=== PATIENT | male | born 1950 ===

== ENCOUNTER 2021-10-19 17:00 | Emergency (ER) | payer OTHER ==
[~2021-10-19] VITALS: Ht 177.8 cm; Wt 104.3 kg
[2021-10-19] MEDS ORDERED: FAMOTIDINE (10MG/ML) 2ML VL IV ONE (19:15)
[2021-10-19] MEDS ORDERED: SODIUM CHLORIDE 0.9% 1,000 ML IVB ONE (19:15)
[2021-10-19] MEDS ORDERED: IOHEXOL 350 MG/ML 100ML IJ ONE (20:46)
[2021-10-19 22:43] LABS: Basophils # (auto) 0 10 ^3/uL (0-0.2); Basophils % (auto) 0.3 % (0.0-2.0); Eosinophils # (auto) 0.2 10 ^3/uL (0-0.8); Eosinophils % (auto) 1.5 % (0.0-7.0); Hematocrit 36.9 % (41.0-53.0); Hemoglobin 12.4 g/dL (13.5-17.5); Lymphocytes # (auto) 3.2 10 ^3/uL (0.4-5.4); Lymphocytes % (auto) 22.6 % (10.0-50.0); Mean Corpuscular Hemoglobin 31.9 pg (28.0-32.0); Mean Corpuscular Hgb Conc. 33.7 g/dL (32.0-36.0); Mean Corpuscular Volume 94.5 fL (80.0-100.0); Monocytes # (auto) 1.3 10 ^3/uL (0-1.3); Monocytes % (auto) 9.7 % (0.0-12.0); Neutrophils # (auto) 9.2 10 ^3/uL (1.6-8.6); Neutrophils % (auto) 65.9 % (37.0-80.0); Red Cell Distribution Width 14.1 % (11.8-14.3); White Blood Cell 13.9 10^3/uL (4.4-10.8)
[2021-10-19 23:04] LABS: Albumin 3.7 g/dL (3.4-5.0); Magnesium 3.2 mg/dL (1.6-2.6); Potassium 4.1 mmol/L (3.5-5.1)
[2021-10-19 23:10] LABS: BUN/Creatinine Ratio 19.4; Bilirubin, Total 0.6 mg/dL (0.2-1.0); Total Protein 7.8 g/dL (6.4-8.2)
[2021-10-20] MEDS ORDERED: HYDROcodone-ACET 7.5/325MG TAB PO ONE (03:30)
[2021-10-20 09:30] VITALS: BP 122/78
== END 2021-10-20 13:41 | disposition home or self-care (01) ==
LOC: ER 17:00
DX: K57.30 Diverticulosis of large intestine without perforation or abscess without bleeding (principal); K82.8 Other specified diseases of gallbladder; N40.0 Benign prostatic hyperplasia without lower urinary tract symptoms; K59.00 Constipation, unspecified; J45.909 Unspecified asthma, uncomplicated; K21.9 Gastro-esophageal reflux disease without esophagitis; E78.5 Hyperlipidemia, unspecified; Z88.6 Allergy status to analgesic agent
CPT/HCPCS: 36415; 74177; 80053; 83605; 83690; 83735; 84484; 85025; 93005; 96361; 96374; 99285; J3490; J7030; Q9967

== ENCOUNTER 2023-07-19 09:47 | Inpatient (IN) | payer OTHER ==
[~2023-07-19] VITALS: Ht 177.8 cm; Wt 106.1 kg
[2023-07-19 10:30] LABS: Basophils # (auto) 0 10 ^3/uL (0-0.2); Basophils % (auto) 0.2 % (0.0-2.0); Eosinophils # (auto) 0.3 10 ^3/uL (0-0.8); Eosinophils % (auto) 3.3 % (0.0-7.0); Hematocrit 35.9 % (41.0-53.0); Hemoglobin 12.4 g/dL (13.5-17.5); Lymphocytes # (auto) 2.5 10 ^3/uL (0.4-5.4); Mean Corpuscular Hemoglobin 32.7 pg (28.0-32.0); Mean Corpuscular Hgb Conc. 34.5 g/dL (32.0-36.0); Mean Corpuscular Volume 94.6 fL (80.0-100.0); Monocytes # (auto) 0.8 10 ^3/uL (0-1.3); Monocytes % (auto) 7.4 % (0.0-12.0); Neutrophils # (auto) 6.8 10 ^3/uL (1.6-8.6); Neutrophils % (auto) 65.1 % (37.0-80.0); Red Blood Cells 3.79 10^6/uL (4.5-5.90); Red Cell Distribution Width 14.4 % (11.8-14.3); White Blood Cell 10.5 10^3/uL (4.4-10.8)
[2023-07-19 11:05] LABS: Alanine Aminotransferase 30 U/L (7-40); Albumin 4.3 g/dL (3.2-4.8); Alkaline Phosphatase 100 U/L (46-116); Anion Gap 7.5 (5-15); Aspartate Aminotransferase 19 U/L (13-40); BUN/Creatinine Ratio 17.2 (10.0-20.0); Bilirubin, Total 0.4 mg/dL (0.2-1.0); Blood Urea Nitrogen 17 mg/dL (9-23); Calcium 9.7 mg/dL (8.5-10.1); Carbon Dioxide 23.5 mmol/L (20-30); Chloride 109 mmol/L (98-107); Glucose 105 mg/dL (74-106); Potassium 4.5 mmol/L (3.5-5.1); Sodium 140 mmol/L (136-145); Total Protein 7.1 g/dL (5.7-8.2)
[2023-07-19 11:32] LABS: Urine WBC None Seen /hpf (0 - 3)
[2023-07-19 12:04] LABS: Urine Bacteria NONE SEEN /hpf (None Seen); Urine Blood Negative /uL (Negative); Urine Clarity Clear (Clear); Urine Color Yellow (Yellow); Urine Mucus FEW (None Seen); Urine Protein, UAD Negative (Negative); Urine Specific Gravity 1.015 (1.001-1.035); Urine Urobilinogen Normal (Negative); Urine pH 5.5 (5.0-8.0)
[2023-07-19] MEDS ORDERED: ENOXAPARIN SOD 120 MG/0.8 ML SYRINGE SC ONE (12:30)
[2023-07-19 14:02] VITALS: RESP 20; O2SAT 98
[2023-07-19] MEDS ORDERED: TAMS0.4C36 PO (14:05)
[2023-07-19] MEDS ORDERED: BENZ100C97 PO (14:05)
[2023-07-19] MEDS ORDERED: BUPR200T49 PO (14:05)
[2023-07-19] MEDS ORDERED: AMLO1TAB22 PO (14:05)
[2023-07-19] MEDS ORDERED: AZIT-43 PO (14:05)
[2023-07-19] MEDS ORDERED: PANT40T PO (14:05)
[2023-07-19] MEDS ORDERED: CELE1CAP8 PO (14:05)
[2023-07-19] MEDS ORDERED: MONT-8 PO (14:05)
[2023-07-19] MEDS ORDERED: NITROGLYCERIN 0.4 MG SL TAB SL PRN (14:15)
[2023-07-19] MEDS ORDERED: ALBUTEROL SULF 2.5 MG/0.5ML(0.5%) NEB SOLN NEB PRN (14:15)
[2023-07-19] MEDS ORDERED: ACETAMINOPHEN 325 MG TAB PO PRN (14:15)
[2023-07-19] MEDS ORDERED: HEPARIN SODIUM (PORCINE) 5000 UNITS/ML 1ML VIAL IV ONE (14:15)
[2023-07-19] MEDS: SODIUM CHLORIDE 0.9% 1,000 ML IV SCH (14:15)
[2023-07-19] MEDS ORDERED: MORPHINE SULFATE INJ 2 MG/ml SYRG IV PRN (14:15)
[2023-07-19 14:55] LABS: Triglycerides 99 mg/dL (< 150)
[2023-07-19 14:56] LABS: LDL Cholesterol 66 mg/dL (< 100)
[2023-07-19 14:57] LABS: Cholesterol 128 mg/dL (< 200); HDL Cholesterol 49 mg/dL (40-59)
[2023-07-19 15:36] VITALS: BP 128/77; PULSE 78; RESP 21; TEMP 98.1; O2SAT 92
[2023-07-19 15:47] VITALS: O2SAT 92
[2023-07-19 17:08] VITALS: O2SAT 94
[2023-07-19 17:42] LABS: INR 1.09 (0.9-1.15); Prothrombin Time 11.4 sec (9.3-11.8)
[2023-07-19 20:30] VITALS: PULSE 71; O2SAT 93
[2023-07-19] MEDS: HYDROcodone-ACET 5/325MG TAB PO PRN (21:54)
[2023-07-19] MEDS: BUPROPION HCL 200 MG PO SCH (22:00)
[2023-07-19] MEDS: CELECOXIB 100 MG CAP PO SCH (22:26)
[2023-07-19] MEDS: ENOXAPARIN SOD 120 MG/0.8 ML SYRINGE SC SCH (22:26)
[2023-07-19 22:50] VITALS: O2SAT 94
[2023-07-20] VITALS (10 sets, daily range): BP systolic 121–156; BP diastolic 76–84; PULSE 60–76; RESP 18–96; TEMP 97.6–98.2; O2SAT 94–98
[2023-07-20 05:57] LABS: Basophils # (auto) 0 10 ^3/uL (0-0.2); Basophils % (auto) 0.3 % (0.0-2.0); Eosinophils # (auto) 0.4 10 ^3/uL (0-0.8); Eosinophils % (auto) 3.9 % (0.0-7.0); Hematocrit 33.7 % (41.0-53.0); Hemoglobin 11.7 g/dL (13.5-17.5); Lymphocytes # (auto) 4.1 10 ^3/uL (0.4-5.4); Lymphocytes % (auto) 44.8 % (10.0-50.0); Mean Corpuscular Hemoglobin 32.5 pg (28.0-32.0); Mean Corpuscular Hgb Conc. 34.6 g/dL (32.0-36.0); Mean Corpuscular Volume 93.8 fL (80.0-100.0); Monocytes # (auto) 0.7 10 ^3/uL (0-1.3); Monocytes % (auto) 7.7 % (0.0-12.0); Neutrophils % (auto) 43.3 % (37.0-80.0); Red Blood Cells 3.59 10^6/uL (4.5-5.90); Red Cell Distribution Width 14.1 % (11.8-14.3); White Blood Cell 9.2 10^3/uL (4.4-10.8)
[2023-07-20] MEDS: SODIUM CHLORIDE 0.9% 1,000 ML IV SCH (06:14)
[2023-07-20 06:17] LABS: Alanine Aminotransferase 25 U/L (7-40); Albumin 3.9 g/dL (3.2-4.8); Alkaline Phosphatase 88 U/L (46-116); Anion Gap 5.6 (5-15); Aspartate Aminotransferase 18 U/L (13-40); BUN/Creatinine Ratio 13.6 (10.0-20.0); Blood Urea Nitrogen 12 mg/dL (9-23); Calcium 9.4 mg/dL (8.5-10.1); Carbon Dioxide 23.4 mmol/L (20-30); Chloride 109 mmol/L (98-107); Glucose 96 mg/dL (74-106); Potassium 4.1 mmol/L (3.5-5.1); Sodium 138 mmol/L (136-145)
[2023-07-20 06:18] LABS: Bilirubin, Total 0.4 mg/dL (0.2-1.0); Total Protein 6.6 g/dL (5.7-8.2)
[2023-07-20] MEDS: BUPROPION HCL 200 MG PO SCH ×2 (10:00→21:28)
[2023-07-20] MEDS: PANTOPRAZOLE 40 MG TAB PO SCH (10:20)
[2023-07-20] MEDS: ENOXAPARIN SOD 120 MG/0.8 ML SYRINGE SC SCH ×2 (10:21→21:30)
[2023-07-20] MEDS: amLODIPine BESYLATE 5 MG TAB PO SCH (10:21)
[2023-07-20] MEDS: MONTELUKAST SODIUM 10 MG TAB PO SCH (10:21)
[2023-07-20] MEDS: CELECOXIB 100 MG CAP PO SCH ×2 (10:21→21:29)
[2023-07-20] MEDS: HYDROcodone-ACET 5/325MG TAB PO PRN ×2 (12:22→21:30)
[2023-07-20] MEDS: TAMSULOSIN HYDROCHLORIDE 0.4 MG CAP PO SCH ×2 (12:23→21:29)
[2023-07-20] MEDS ORDERED: TAMSULOSIN HYDROCHLORIDE 0.4 MG CAP PO SCH (18:00)
[2023-07-20 20:37] LABS: Base Excess 0.2 mmol/L (-2.0-2.0)
[2023-07-21] VITALS (9 sets, daily range): BP systolic 111–129; BP diastolic 54–79; PULSE 60–102; RESP 18–96; TEMP 37; O2SAT 93–97
[2023-07-21 05:57] LABS: Basophils # (auto) 0 10 ^3/uL (0-0.2); Basophils % (auto) 0.5 % (0.0-2.0); Eosinophils # (auto) 0.3 10 ^3/uL (0-0.8); Eosinophils % (auto) 3.6 % (0.0-7.0); Hematocrit 36.2 % (41.0-53.0); Hemoglobin 12.1 g/dL (13.5-17.5); Lymphocytes # (auto) 3.7 10 ^3/uL (0.4-5.4); Lymphocytes % (auto) 45.9 % (10.0-50.0); Mean Corpuscular Hemoglobin 32.1 pg (28.0-32.0); Mean Corpuscular Hgb Conc. 33.4 g/dL (32.0-36.0); Mean Corpuscular Volume 95.9 fL (80.0-100.0); Monocytes # (auto) 0.7 10 ^3/uL (0-1.3); Monocytes % (auto) 9.1 % (0.0-12.0); Neutrophils # (auto) 3.3 10 ^3/uL (1.6-8.6); Neutrophils % (auto) 40.9 % (37.0-80.0); Nucleated Red Blood Cells % 0.1 %; Red Blood Cells 3.78 10^6/uL (4.5-5.90); Red Cell Distribution Width 13.9 % (11.8-14.3); White Blood Cell 8.1 10^3/uL (4.4-10.8)
[2023-07-21 06:10] LABS: Anion Gap 8 (5-15); Carbon Dioxide 22 mmol/L (20-30); Chloride 107 mmol/L (98-107); Potassium 4.1 mmol/L (3.5-5.1); Sodium 137 mmol/L (136-145)
[2023-07-21 06:11] LABS: Calcium 9.7 mg/dL (8.7-10.4)
[2023-07-21 06:16] LABS: BUN/Creatinine Ratio 12.9 (10.0-20.0); Blood Urea Nitrogen 11 mg/dL (9-23); Glucose 89 mg/dL (74-106)
[2023-07-21] MEDS ORDERED: APIX5TAB PO (10:00)
[2023-07-21] MEDS: ENOXAPARIN SOD 120 MG/0.8 ML SYRINGE SC SCH (10:19)
[2023-07-21] MEDS ORDERED: IOHEXOL 300 MG/ML 100ML BOTTLE IJ ONE (13:47)
[2023-07-21] MEDS: TAMSULOSIN HYDROCHLORIDE 0.4 MG CAP PO SCH (14:22)
[2023-07-21] MEDS: PANTOPRAZOLE 40 MG TAB PO SCH (14:22)
[2023-07-21] MEDS: MONTELUKAST SODIUM 10 MG TAB PO SCH (14:23)
[2023-07-21] MEDS: CELECOXIB 100 MG CAP PO SCH (14:23)
[2023-07-21] MEDS: BUPROPION HCL 200 MG PO SCH (14:24)
[2023-07-21] MEDS: amLODIPine BESYLATE 5 MG TAB PO SCH (14:24)
[2023-07-21] MEDS ORDERED: BUDE0.253 IN (18:15)
[2023-07-21] MEDS ORDERED: APIXABAN 5 MG TAB PO ONE (18:30)
== END 2023-07-21 19:28 | disposition home or self-care (01) | DRG 175 ==
LOC: ER 09:47 → EDBD 09:47 → TELE 14:04 → TELE-WESTW 21:25
PROVIDERS: ADMIT Internal Medicine Pulmonary Disease; ATTEND Internal Medicine Pulmonary Disease
DX: I26.99 Other pulmonary embolism without acute cor pulmonale (principal); J96.01 Acute respiratory failure with hypoxia; I82.431 Acute embolism and thrombosis of right popliteal vein; I71.60 Thoracoabdominal aortic aneurysm, without rupture, unspecified; K21.9 Gastro-esophageal reflux disease without esophagitis; E78.5 Hyperlipidemia, unspecified; E66.9 Obesity, unspecified; I12.9 Hypertensive chronic kidney disease with stage 1 through stage 4 chronic kidney disease, or unspecified chronic kidney disease; N18.1 Chronic kidney disease, stage 1; K57.30 Diverticulosis of large intestine without perforation or abscess without bleeding; N40.0 Benign prostatic hyperplasia without lower urinary tract symptoms; J43.9 Emphysema, unspecified; Z88.1 Allergy status to other antibiotic agents; Z68.33 Body mass index [BMI] 33.0-33.9, adult; Z88.0 Allergy status to penicillin
CPT/HCPCS: 36415; 36600; 71045; 71275; 74178; 80048; 80053; 80061; 81001; 82805; 83880; 84443; 84484; 85025; 85379; 85610; 85730; 93005; 93306; 93970; 96361; 96372; 96374; 99291; G0378

== ENCOUNTER 2023-11-05 17:59 | Emergency (ER) | payer OTHER ==
[~2023-11-05] VITALS: Ht 177.8 cm; Wt 112.1 kg
[~2023-11-05 17:59] MED LIST: APIX5TAB PO; BENZ100C97 PO; BUDE0.253 IN; BUPR200T49 PO; CELE1CAP8 PO; MONT-8 PO; PANT40T PO; TAMS0.4C36 PO
[2023-11-05 19:06] VITALS: BP 117/82; PULSE 96; RESP 20; O2SAT 95
== END 2023-11-05 21:23 | disposition home or self-care (01) ==
LOC: ER 17:59
DX: M79.604 Pain in right leg (principal); I12.9 Hypertensive chronic kidney disease with stage 1 through stage 4 chronic kidney disease, or unspecified chronic kidney disease; N18.9 Chronic kidney disease, unspecified; E78.5 Hyperlipidemia, unspecified; K21.9 Gastro-esophageal reflux disease without esophagitis; M19.90 Unspecified osteoarthritis, unspecified site; J45.909 Unspecified asthma, uncomplicated; Z86.718 Personal history of other venous thrombosis and embolism; Z88.8 Allergy status to other drugs, medicaments and biological substances; Z79.899 Other long term (current) drug therapy

== ENCOUNTER 2023-12-08 10:38 | Inpatient (IN) | payer OTHER ==
[~2023-12-08] VITALS: Ht 177.8 cm; Wt 113.3 kg
[2023-12-08 11:59] LABS: Basophils # (auto) 0 10 ^3/uL (0-0.2); Basophils % (auto) 0.2 % (0.0-2.0); Eosinophils # (auto) 0.3 10 ^3/uL (0-0.8); Eosinophils % (auto) 1.8 % (0.0-7.0); Hematocrit 37.6 % (41.0-53.0); Hemoglobin 12.7 g/dL (13.5-17.5); Lymphocytes # (auto) 3.5 10 ^3/uL (0.4-5.4); Lymphocytes % (auto) 21.6 % (10.0-50.0); Mean Corpuscular Hemoglobin 32.4 pg (28.0-32.0); Mean Corpuscular Hgb Conc. 33.9 g/dL (32.0-36.0); Mean Corpuscular Volume 95.8 fL (80.0-100.0); Monocytes # (auto) 1.1 10 ^3/uL (0-1.3); Monocytes % (auto) 6.8 % (0.0-12.0); Neutrophils # (auto) 11.2 10 ^3/uL (1.6-8.6); Neutrophils % (auto) 69.6 % (37.0-80.0); Red Blood Cells 3.93 10^6/uL (4.5-5.90); Red Cell Distribution Width 14.4 % (11.8-14.3); White Blood Cell 16.1 10^3/uL (4.4-10.8)
[2023-12-08 12:32] LABS: Alanine Aminotransferase 31 U/L (7-40); Albumin 4.2 g/dL (3.2-4.8); Alkaline Phosphatase 79 U/L (46-116); Anion Gap 6 (5-15); Aspartate Aminotransferase 24 U/L (13-40); BUN/Creatinine Ratio 20.8 (10.0-20.0); Blood Urea Nitrogen 25 mg/dL (9-23); Carbon Dioxide 24 mmol/L (20-30); Chloride 110 mmol/L (98-107); Glucose 99 mg/dL (74-106); Potassium 4.5 mmol/L (3.5-5.1); Sodium 140 mmol/L (136-145)
[2023-12-08 12:33] LABS: Bilirubin, Total 0.3 mg/dL (0.2-1.0); Total Protein 6.7 g/dL (5.7-8.2)
[2023-12-08 13:01] LABS: INR 1.11 (0.9-1.15); Partial Thromboplastin Time 29.3 SEC (24.5-34.5); Prothrombin Time 11.6 sec (9.3-11.8)
[2023-12-08] MEDS ORDERED: MORPHINE SULFATE INJ 2 MG/ml SYRG IV PRN (16:45)
[2023-12-08] MEDS ORDERED: ONDANSETRON HCL 4 MG/2 ML VIAL IV PRN (16:45)
[2023-12-08] MEDS: IPRATROPIUM BROM 0.5 MG/2.5ML INH SOL NEB SCH (18:13)
[2023-12-08] MEDS: ALBUTEROL SULF 2.5 MG/0.5ML(0.5%) NEB SOLN NEB SCH (18:13)
[2023-12-08 18:23] LABS: Base Excess -1.1 mmol/L (-2.0-2.0)
[2023-12-08 18:36] VITALS: BP 138/65; PULSE 60; RESP 20; TEMP 97.7; O2SAT 90
[2023-12-08] MEDS: SODIUM CHLORIDE 0.9% 1,000 ML IV SCH (18:45)
[2023-12-08] MEDS: methylPREDNISolone SOD SUCC 125 MG/2 ML VL IV ONE (18:50)
[2023-12-08] MEDS: TAMSULOSIN HYDROCHLORIDE 0.4 MG CAP PO SCH (18:54)
[2023-12-08] MEDS: IOHEXOL 350 MG/ML 100ML IJ ONE (18:56)
[2023-12-08 20:57] LABS: Urine WBC None Seen /hpf (0 - 3)
[2023-12-08 21:50] LABS: Urine Bacteria NONE SEEN /hpf (None Seen); Urine Blood Negative /uL (Negative); Urine Clarity Clear (Clear); Urine Color Yellow (Yellow); Urine Hyaline Cast MOD /lpf (0 - 2); Urine Mucus FEW (None Seen); Urine Protein, UAD Negative (Negative); Urine Urobilinogen Normal (Negative); Urine pH 5.5 (5.0-8.0)
[2023-12-08] MEDS: methylPREDNISolone SOD SUCC 125 MG/2 ML VL IV SCH (22:00)
[2023-12-08] MEDS: ENOXAPARIN SOD 120 MG/0.8 ML SYRINGE SC SCH (22:21)
[2023-12-08 23:30] VITALS: PULSE 111; RESP 18; O2SAT 95
[2023-12-09] VITALS (19 sets, daily range): BP systolic 99–138; BP diastolic 50–75; PULSE 50–108; RESP 16–94; TEMP 97.4–98.4; O2SAT 20–99
[2023-12-09] MEDS: HYDROcodone-ACET 5/325MG TAB PO PRN (00:05)
[2023-12-09 02:41] LABS: COVID19 ANTIGEN SOFIA FIA NEGATIVE (NEGATIVE); Rapid Influenza A Negative (Negative); Rapid Influenza B Negative (Negative)
[2023-12-09 07:01] LABS: Basophils # (auto) 0 10 ^3/uL (0-0.2); Basophils % (auto) 0.1 % (0.0-2.0); Eosinophils # (auto) 0 10 ^3/uL (0-0.8); Hematocrit 35.6 % (41.0-53.0); Lymphocytes # (auto) 1.3 10 ^3/uL (0.4-5.4); Lymphocytes % (auto) 14.5 % (10.0-50.0); Mean Corpuscular Hemoglobin 32.4 pg (28.0-32.0); Mean Corpuscular Hgb Conc. 33.8 g/dL (32.0-36.0); Monocytes # (auto) 0.2 10 ^3/uL (0-1.3); Monocytes % (auto) 1.8 % (0.0-12.0); Neutrophils # (auto) 7.3 10 ^3/uL (1.6-8.6); Neutrophils % (auto) 83.6 % (37.0-80.0); Red Blood Cells 3.71 10^6/uL (4.5-5.90); Red Cell Distribution Width 14.3 % (11.8-14.3); White Blood Cell 8.8 10^3/uL (4.4-10.8)
[2023-12-09 07:19] LABS: Alanine Aminotransferase 30 U/L (7-40); Alkaline Phosphatase 76 U/L (46-116); Anion Gap 10 (5-15); BUN/Creatinine Ratio 17.4 (10.0-20.0); Blood Urea Nitrogen 19 mg/dL (9-23); Calcium 10.1 mg/dL (8.5-10.1); Carbon Dioxide 20 mmol/L (20-30); Chloride 108 mmol/L (98-107); Glucose 151 mg/dL (74-106); Potassium 4.2 mmol/L (3.5-5.1); Sodium 138 mmol/L (136-145)
[2023-12-09 07:20] LABS: Albumin 4.2 g/dL (3.2-4.8); Aspartate Aminotransferase 23 U/L (13-40); Bilirubin, Total 0.2 mg/dL (0.2-1.0)
[2023-12-09] MEDS: MONTELUKAST SODIUM 10 MG TAB PO SCH (09:28)
[2023-12-09] MEDS: PANTOPRAZOLE 40 MG TAB PO SCH (09:28)
[2023-12-09] MEDS: levoFLOXacin 500 MG TAB PO ONE (14:00)
[2023-12-09] MEDS: OXYCODONE W/ ACETAMINOPHEN 5/325MG TABLET PO PRN (17:50)
[2023-12-09] MEDS ORDERED: BACL10TA PO (17:56)
[2023-12-09] MEDS ORDERED: HYDR-4902 PO (17:56)
[2023-12-09] MEDS ORDERED: TRAZ-227 PO (18:00)
[2023-12-09] MEDS ORDERED: OLME40TA78 PO (18:00)
[2023-12-09] MEDS ORDERED: FLUT50SP (18:00)
[2023-12-09] MEDS ORDERED: CALC1CHW PO (18:00)
[2023-12-09] MEDS ORDERED: AMLO1TAB22 PO (18:00)
[2023-12-09] MEDS ORDERED: ATOR10TA52 PO (18:00)
[2023-12-09] MEDS: ZOLPIDEM TARTRATE 5 MG TAB PO PRN (21:59)
[2023-12-09] MEDS: DOCUSATE SOD 100 MG CAP PO PRN (21:59)
[2023-12-10] VITALS (19 sets, daily range): BP systolic 112–141; BP diastolic 64–75; PULSE 77–96; RESP 18–21; TEMP 97.6–98; O2SAT 93–100
[2023-12-10] MEDS: guaiFENesin-DM 100/10mg/5ml SYR PO PRN (00:55)
[2023-12-10] MEDS: levoFLOXacin 500 MG TAB PO SCH (09:31)
[2023-12-10] MEDS ORDERED: guaiFENesin-DM 100/10mg/5ml SYR PO PRN (20:45)
[2023-12-11] VITALS (20 sets, daily range): BP systolic 119–149; BP diastolic 68–87; PULSE 76–97; RESP 15–21; TEMP 97.5–98.5; O2SAT 91–99
[2023-12-12] VITALS (13 sets, daily range): BP systolic 120–133; BP diastolic 47–85; PULSE 75–102; RESP 14–22; TEMP 97.6–98.7; O2SAT 91–100
[2023-12-12 10:06] LABS: PSA Free 0.64 ng/mL; Prostate Specific Antigen 5.2 ng/mL (0.0-4.0)
[2023-12-12] MEDS ORDERED: PRED20TA2 PO (12:51)
[2023-12-12] MEDS ORDERED: LEVO500T91 PO (12:51)
== END 2023-12-12 17:00 | disposition home or self-care (01) | DRG 871 ==
LOC: ER 10:38 → TELE 16:46 → TELE-WESTW 12-09 04:28
PROVIDERS: ADMIT Nurse Practitioner Family; ATTEND Family Medicine
DX: A41.9 Sepsis, unspecified organism (principal); J15.69 Pneumonia due to other Gram-negative bacteria; J96.01 Acute respiratory failure with hypoxia; J15.9 Unspecified bacterial pneumonia; I82.531 Chronic embolism and thrombosis of right popliteal vein; J43.9 Emphysema, unspecified; I10 Essential (primary) hypertension; E78.00 Pure hypercholesterolemia, unspecified; K21.9 Gastro-esophageal reflux disease without esophagitis; N40.0 Benign prostatic hyperplasia without lower urinary tract symptoms; I71.40 Abdominal aortic aneurysm, without rupture, unspecified; M54.30 Sciatica, unspecified side; Z20.822 Contact with and (suspected) exposure to COVID-19; F14.10 Cocaine abuse, uncomplicated; F15.10 Other stimulant abuse, uncomplicated; I71.60 Thoracoabdominal aortic aneurysm, without rupture, unspecified; F10.10 Alcohol abuse, uncomplicated; Z86.711 Personal history of pulmonary embolism; Z79.01 Long term (current) use of anticoagulants; Z88.0 Allergy status to penicillin; Z88.1 Allergy status to other antibiotic agents
CPT/HCPCS: 36415; 36600; 71045; 71275; 80053; 80320; 81001; 82805; 84154; 84484; 85025; 85610; 85730; 87070; 87205; 87426; 87804; 93005; 93970; 94640; 99291; G0378

== ENCOUNTER 2024-11-21 19:08 | Inpatient (IN) | payer OTHER ==
[~2024-11-21] VITALS: Ht 175.3 cm; Wt 80.5 kg
[~2024-11-21 19:08] MED LIST changes: +AMLO1TAB22 PO; +ATOR10TA52 PO; +BACL10TA PO; +CALC1CHW PO; +CELE1CAP29 PO; -CELE1CAP8 PO; +FLUT50SP; +HYDR-4902 PO; +LEVO500T91 PO; +OLME40TA78 PO; +PRED20TA2 PO; -TAMS0.4C36 PO; +TAMS0.4C39 PO; +TRAZ-227 PO
--- NOTE | 2024-11-21 19:44 | ED.PDOC ---
SOB-HPI HPI Comments 74 year old male brought in by EMS presents to the ED with a chief complaint of shortness of breath onset 3 weeks ago. Patient states he began experiencing productive cough with yellow phlegm as well as shortness of breath 3 weeks ago and noticed it worsen today. Patient went to the store and noticed he was short of breath and was unable to make it inside without leaning against a wall for a few seconds. Patient tried to walk from bedroom to living room and notice is shortness of breath worsened and called EMS. Upon EMS arrival, O2 sat was 88% on 2L nc which pt uses at home. Upon ED arrival O2 sat was 93-94% on 2L O2. Patient states he used Nebulizer and inhaler today and took an oral steroid with no re lief of symptoms. Patient follows up for his thoracic aortic aneurysm, was checked 4 months ago and was told he was doing well. PMHx COPD, asthma, CKF, GERD, HTN, HLD, arthritis,thoracic aortic aneurysm. Denies chest pain, fever, leg swelling, dizziness, blurry vision. No other symptoms or modifying factors present at this time. Chief Complaint: Shortness of Breath Time Seen by MD: 19:20 Primary Care Provider: PARKER CHILEL Reviewed notes: Medications, Allergies Information Source: Patient Mode of Arrival: EMS Severity: Moderate Timing: Weeks Duration: Since onset PE Risk Factors: None History of: Asthma, COPD, None Prehospital treatment: None Modifying Factors: Nothing Associated Signs and Symptoms: Cough Radiation: No Radiation If cough with SOB: Productive, Yellow Past Medical History PAST MEDICAL HISTORY: Arthritis, CKF, COPD, GERD, High Lipids, HTN Past Medical History (Other): chronic bronchitis Surgical History (Other): nasoplasty, lymph node biopsy Family History Family History: Reviewed,noncontributory to illness Social History Smoker: Non-Smoker Alcohol: Denies ETOH Use Drugs: Denies Drug Use Lives In: Home Constitutional: denies: chills, diaphoresis, fatigue, fever, malaise, sweats, weakness, others EENTM: denies: blurred vision, double vision, ear bleeding, ear discharge, ear drainage, ear pain, ear ringing, eye pain, eye redness, hearing loss, mouth pain, mouth swelling, nasal discharge, nose bleeding, nose congestion, nose pain, photophobia, tearing, throat pain, throat swelling, voice changes, others Respiratory: reports: cough, shortness of breath; denies: hemoptysis, orthopnea, SOB at rest, SOB with excertion, stridor, wheezing, others Cardiovascular: denies: chest pain, dizzy spells, diaphoresis, Dyspnea on e xertion, edema, irregular heart beat, left arm pain, lightheadedness, palpitations, PND, syncope, others Gastrointestinal: denies: abdomen distended, abdominal pain, blood streaked bowels, constipated, diarrhea, dysphagia, difficulty swallowing, hematemesis, melena, nausea, poor appetite, poor fluid intake, rectal bleeding, rectal pain, vomiting, others Genitourinary: denies: burning, dysuria, flank pain, frequency, hematuria, incontinence, penile discharge, penile sore, pain, testicle pain, testicle swelling, urgency, others Neurological: denies: dizziness, fainting, headache, left sided numbness, left sided weakness, numbness, paresthesia, pre-existing deficit, right sided numbness, right sided weakness, seizure, speech problems, tingling, tremors, weakness, others Musculoskeletal: denies: back pain, gout, joint pain, joint swelling, muscle pain, muscle stiffness, neck pain, others Integumetry: denies: bruises, change in color, change in hair/nails, dryness, laceration, lesions, lumps, rash, wounds, others Hematologic/Lymphatic: denies: anemia, blood clots, easy bleeding, easy bruising, swollen glands, others Endocrine: denies: excessive hunger, excessive sweating, excessive thirst, excessive urination, flushing, intolerance to cold, intolerance to heat, unexplained weight gain, unexplained weight loss, others Psychiatric: denies: anxiety, bipolar disorder, depression, hopeless, panic disorder, schizophrenia, sleepless, suicidal, others All Other Systems: Reviewed and Negative Physical Exam General Appearance: Mild Distress HEENT: Other (Pupils symmetric, no facial asymmetry, moist mucous membranes) Neck: Full Range of Motion, Normal Inspection Respiratory: No Accessory Muscle Use, Respiratory Distress (Mild), Rhonchi, Other (Speaks full sentences) Cardiovascular: No Edema, No JVD, Regular Rate/Rhythm Breast Exam: Deferred Gastrointestinal: Non Tender, Soft Genitalia: Deferred Pelvic: Deferred Rectal: Deferred Extremities: Normal inspection, Normal range of motion, Non-tender, No pedal edema Neurologic: Alert (Oriented x4), Normal Affect, Normal Mood, Other (No gross focal deficit) Cerebellar Function: NOT DONE Reflexes: NOT DONE Skin: Dry, Normal Color, Warm Lymphatic: NOT DONE EKG EKG : Comments Sinus rhythm, rate 97, normal intervals, left axis deviation, old inferior infarct, T-wave inversion in leads V1 through V5 with other nonspecific T change Was a procedure done? Was a procedure done?: No Differential Dx Differential Diagnosis: Asthma, Bronchitis, CHF, COPD, Hyperventilation, Myocardial infarction, Pneumonia, Pulmonary Embolism, Respiratory Distress, URI X-Ray, Labs, Meds, VS Vital Signs Date Time Temp Pulse Resp B/P (MAP) Pulse Ox O2 Delivery O2 Flow Rate FiO2 11/21/24 20:33 20 94 Nasal Cannula* 2 28 11/21/24 19:23 97 11/21/24 19:18 98.6 104 18 136/71 (92) 94 Lab Test 11/21/24 21:12 Range/Units White Blood Count 10.0 4.4-10.8 10^3/uL Red Blood Count 4.17 L 4.5-5.90 10^6/uL Hemoglobin 13.3 L 13.5-17.5 g/dL Hematocrit 39.2 L 41.0-53.0 % Mean Corpuscular Volume 94.1 80.0-100.0 fL Mean Corpuscular Hemoglobin 31.8 28.0-32.0 pg Mean Corpuscular Hemoglobin Concent 33.8 32.0-36.0 g/dL Red Cell Distribution Width 15.3 H 11.8-14.3 % Platelet Count 203 140-450 10^3/uL Mean Platelet Volume 7.4 6.9-10.8 fL Neutrophils (%) (Auto) 74.7 37.0-80.0 % Lymphocytes (%) (Auto) 19.0 10.0-50.0 % Monocytes (%) (Auto) 5.2 0.0-12.0 % Eosinophils (%) (Auto) 0.8 0.0-7.0 % Basophils (%) (Auto) 0.3 0.0-2.0 % Neutrophils # (Auto) 7.5 1.6-8.6 10 ^3/uL Lymphocytes # (Auto) 1.9 0.4-5.4 10 ^3/uL Monocytes # (Auto) 0.5 0-1.3 10 ^3/uL Eosinophils # (Auto) 0.1 0-0.8 10 ^3/uL Basophils # (Auto) 0 0-0.2 10 ^3/uL Nucleated Red Blood Cells 0.0 % Sodium Level 140 136-145 mmol/L Potassium Level 4.3 3.5-5.1 mmol/L Chloride Level 108 H 98-107 mmol/L Carbon Dioxide Level 26 20-31 mmol/L Anion Gap 6 5-15 Blood Urea Nitrogen 21 9-23 mg/dL Creatinine 1.15 0.700-1.30 mg/dL Glomerular Filtration Rate Calc 68 >90 mL/min BUN/Creatinine Ratio 18.3 10.0-20.0 Serum Glucose 145 H 74-106 mg/dL Lactic Acid Level 1.5 0.4-2.0 mmol/L Calcium Level 10.8 H 8.7-10.4 mg/dL Troponin I High Sensitivity 154 *H </=54 ng/L B-Type Natriuretic Peptide 307.38 0-100 pg/mL Current Medications Medications (Trade) Dose Ordered Sig/Joaquin Route Start Time Stop Time Status Last Admin Albuterol (Ventolin Medneb) 5 mg ONCE ONCE NEB 11/21/24 19:30 11/21/24 19:33 DC 11/21/24 20:33 Ipratropium [place] (Atrovent Medneb) 0.5 mg ONCE ONCE NEB 11/21/24 19:30 11/21/24 19:33 DC 11/21/24 20:33 PROCEDURE(s): CXRP - CHEST PORTABLE REASON: sob ORDER NUMBER(s): [id number], ACCESSION NUMBER(s): [id number] CHEST RADIOGRAPH Indication: sob Technique: Single frontal view of the chest was obtained COMPARISON: XY CHEST PORTABLE on DOS: 12/08/23, XY CHEST PORTABLE on DOS: 07/19/23 FINDINGS: Lines and Tubes: None Lungs: Clear Pleura: No effusion. No pneumothorax. Cardiomediastinal contours: Unremarkable Bones: Unremarkable IMPRESSION: No acute disease. X-Ray, Labs, Meds, VS Comment 74-year-old male with a history of COPD on home oxygen, chronic kidney disease, hypertension, dyslipidemia and GERD complaining of progressively worsening shortness a breath over the past 3 weeks, associated with productive cough Vitals remarkable for heart rate 104, oxygen saturation 94% on 4 L nasal cannula Exam remarkable for mild respiratory distress and bilateral scattered rhonchi Rhythm strip independently interpreted by me: Sinus rhythm, rate 97, no ectopy. Chest x-ray unremarkable CBC, basic metabolic panel and lactate unremarkable, BNP 307.38, troponin 154 Patient treated with the following in the ED: Albuterol 5 mg/Atrovent 0.5 mg nebulized, Solu-Medrol 125 mg IV, Zithromax 500 mg IV, aspirin 325 mg p.o. On re-evaluation, patient states shortness of breath has improved. Oxygen saturation is 94% on 4 L nasal cannula. Plan is to admit the patient for respiratory support, serial troponins and Cardiology evaluation. Time of 1ST Reevaluation: 19:50 Reevaluation 1ST: Unchanged Patient Education/Counseling: Diagnosis, Treatment, Prognosis Family Education/Counseling: No Family Present Additional Information I reviewed the following notes from patient's past medical encounters: The following tests were ordered, and results were reviewed by me: TROP-x2, CBC, BNP, UA, XY CHEST, BMP, EKG, LA W/ REFLEX, BLOOD CULTURE, INFLUENZA A&B, COVID Additional Information was gathered from interviewing the following independent historians: EMS I reviewed and agreed with the following test results read by other providers: X Y CHEST I discussed treatment and results with medical personnel and: patient Departure 1 Departure Time of Disposition: 20:28 Impression: Primary Impression: [id number] respiratory failure Qualified Codes: J96.20 - Acute and chronic respiratory failure, unspecified whether with hypoxia or hypercapnia Additional Impressions: COPD with acute exacerbation Non-STEMI (non-ST elevated myocardial infarction) Disposition: 09 ADMITTED INPATIENT Admit to: Tele Condition: Guarded Critical Care Note Critical Care Time?: Yes (45 min-critical care time only) Critical care comment: Critical care time including multiple bedside re-evaluations, review of lab and imaging studies, and discussion of the case with the admitting provider. Patient is high risk for respiratory and/or hemodynamic decompensation. Stability Stability form required: No Heart Score Heart Score: Heart Score Response (Comments) Value History N/A 0 EKG N/A 0 Age N/A 0 Risk Factors N/A 0 Troponin N/A 0 Total 0 I personally scribed for LUC GORDON MD ([facility] on 11/21/24 at 19:44. Electronically submitted by Nalini Smith ([email or web address]). I personally scribed for LUC GRODON MD ([facility] on 11/21/24 at 19:55. Electronically submitted by Nalini Smith ([email or web address]). I personally scribed for LUC GORDON MD ([email or web address]) on 11/21/24 at 20:52. Electronically submitted by Nalini Smith ([email or web address]). LUC GORDON MD Nov 21, 2024 19:44
--- NOTE | 2024-11-21 20:09 | DVH ---
CHEST RADIOGRAPH Indication: sob Technique: Single frontal view of the chest was obtained COMPARISON: XY CHEST PORTABLE on DOS: 12/08/23, XY CHEST PORTABLE on DOS: 07/19/23 FINDINGS: Lines and Tubes: None Lungs: Clear Pleura: No effusion. No pneumothorax. Cardiomediastinal contours: Unremarkable Bones: Unremarkable IMPRESSION: No acute disease.
[2024-11-21 20:33] VITALS: O2SAT 94
[2024-11-21] MEDS: ALBUTEROL SULF 2.5 MG/0.5ML(0.5%) NEB SOLN NEB ONE (20:33)
[2024-11-21] MEDS: IPRATROPIUM BROM 0.5 MG/2.5ML INH SOL NEB ONE (20:33)
[2024-11-21 21:28] LABS: Basophils # (auto) 0 10 ^3/uL (0-0.2); Basophils % (auto) 0.3 % (0.0-2.0); Eosinophils # (auto) 0.1 10 ^3/uL (0-0.8); Eosinophils % (auto) 0.8 % (0.0-7.0); Hematocrit 39.2 % (41.0-53.0); Hemoglobin 13.3 g/dL (13.5-17.5); Lymphocytes # (auto) 1.9 10 ^3/uL (0.4-5.4); Mean Corpuscular Hemoglobin 31.8 pg (28.0-32.0); Mean Corpuscular Hgb Conc. 33.8 g/dL (32.0-36.0); Mean Corpuscular Volume 94.1 fL (80.0-100.0); Monocytes # (auto) 0.5 10 ^3/uL (0-1.3); Monocytes % (auto) 5.2 % (0.0-12.0); Neutrophils # (auto) 7.5 10 ^3/uL (1.6-8.6); Neutrophils % (auto) 74.7 % (37.0-80.0); Platelet Count (auto) 203 10^3/uL (140-450); Red Blood Cells 4.17 10^6/uL (4.5-5.90); Red Cell Distribution Width 15.3 % (11.8-14.3)
[2024-11-21 21:35] LABS: Potassium 4.3 mmol/L (3.5-5.1); Sodium 140 mmol/L (136-145)
[2024-11-21 21:36] LABS: Anion Gap 6 (5-15); Carbon Dioxide 26 mmol/L (20-31)
[2024-11-21 21:41] LABS: BUN/Creatinine Ratio 18.3 (10.0-20.0); Blood Urea Nitrogen 21 mg/dL (9-23)
[2024-11-21 21:43] LABS: Calcium 10.8 mg/dL (8.7-10.4); Chloride 108 mmol/L (98-107); Glucose 145 mg/dL (74-106)
[2024-11-21] MEDS ORDERED: ONDANSETRON HCL 4 MG/2 ML VIAL IV PRN (22:30)
[2024-11-21] MEDS ORDERED: ACETAMINOPHEN 325 MG TAB PO PRN (22:30)
[2024-11-21 22:35] VITALS: BP 136/71; PULSE 103; RESP 20; TEMP 98.6; O2SAT 94
--- NOTE | 2024-11-21 22:57 | DVHHP2 ---
History of Present Illness Reason for Visit: Shortness for breath History of Present Illness 74-year-old male presents for evaluation of shortness for breath. Patient reports a two week history of worsening shortness for breath with associated cough. He reports chest pain with deep breathing. He reports occasional chills. Currently denies chest pain. He uses 3 L of nasal cannula oxygen at home. He has a history of COPD. Denies any other acute complaints at the moment. Past Medical History Asthma, chronic kidney disease, COPD, GERD, dyslipidemia, hypertension Past Surgical History Nasal plasty Family History Noncontributory Smoke: No ALCOHOL: none Drugs: None Lives: with Family Review of Systems Review of Systems Review of systems are currently negative otherwise addressed HPI. Allergies: Coded Allergies: Cephalexin (Verified Allergy, Mild, 10/19/21) Penicillins (Verified Allergy, Unknown, 07/21/23) Medications Current Medications Medications Dose Ordered Sig/Joaquin Route Start Time Stop Time Status Last Admin Dose Admin Albuterol 2.5 mg Q6HPRN PRN NEB 11/21/24 22:30 UNV Ipratropium [place] 0.5 mg Q6HPRN PRN NEB 11/21/24 22:30 UNV Atorvastatin Calcium 10 mg HS PO 11/22/24 22:00 UNV Azithromycin 250 ml @ 125 mls/hr DAILY IV 11/22/24 10:00 UNV Amlodipine Besylate 5 mg DAILY PO 11/22/24 10:00 UNV Apixaban 5 mg BID PO 11/22/24 10:00 UNV Montelukast Sodium 10 mg HS PO 11/22/24 22:00 UNV Ondansetron HCl 4 mg Q4HP PRN IV 11/21/24 22:30 UNV Acetaminophen 650 mg Q6HP PRN PO 11/21/24 22:30 UNV Aspirin 81 mg DAILY PO 11/22/24 10:00 UNV Exam Vital Signs Vital Signs Date Time Temp Pulse Resp B/P (MAP) Pulse Ox O2 Delivery O2 Flow Rate FiO2 11/21/24 22:35 98.6 103 20 136/71 94 98.6 11/21/24 20:33 Nasal Cannula* 2 28 Exam Gen: 74-year-old male in mild distress Skin: Warm, dry, normal color and texture, no rash. HEENT: Normocephalic atraumatic, mucous membranes moist and pink. Neck: Cervical and supraclavicular nodes normal without enlargement, trachea is midline, thyroid gland is normal without masses. Pulmonary: Diminished breath sounds bilaterally Cardiac: Regular rate and rhythm. No murmur Abdomen: Soft, nontender, nondistended, bowel sounds present all 4 quadrants, no guarding, no rigidity, no organomegaly. Extremities: No cyanosis, clubbing, no edema Neuro: Cranial nerves II through XII grossly intact, normal affect and speech, no focal motor deficits. Labs/Xrays ORDERING PHYSICIAN: LUC GORDON MD PROCEDURE(s): CXRP - CHEST PORTABLE REASON: sob ORDER NUMBER(s): [id number], ACCESSION NUMBER(s): [id number] CHEST RADIOGRAPH Indication: sob Technique: Single frontal view of the chest was obtained COMPARISON: XY CHEST PORTABLE on DOS: 12/08/23, XY CHEST PORTABLE on DOS: 07/19/23 FINDINGS: Lines and Tubes: None Lungs: Clear Pleura: No effusion. No pneumothorax. Cardiomediastinal contours: Unremarkable Bones: Unremarkable IMPRESSION: No acute disease. Labs Test 11/21/24 22:14 11/21/24 21:12 Range/Units White Blood Count 10.0 4.4-10.8 10^3/uL Red Blood Count 4.17 L 4.5-5.90 10^6/uL Hemoglobin 13.3 L 13.5-17.5 g/dL Hematocrit 39.2 L 41.0-53.0 % Mean Corpuscular Volume 94.1 80.0-100.0 fL Mean Corpuscular Hemoglobin 31.8 28.0-32.0 pg Mean Corpuscular Hemoglobin Concent 33.8 32.0-36.0 g/dL Red Cell Distribution Width 15.3 H 11.8-14.3 % Platelet Count 203 140-450 10^3/uL Mean Platelet Volume 7.4 6.9-10.8 fL Neutrophils (%) (Auto) 74.7 37.0-80.0 % Lymphocytes (%) (Auto) 19.0 10.0-50.0 % Monocytes (%) (Auto) 5.2 0.0-12.0 % Eosinophils (%) (Auto) 0.8 0.0-7.0 % Basophils (%) (Auto) 0.3 0.0-2.0 % Neutrophils # (Auto) 7.5 1.6-8.6 10 ^3/uL Lymphocytes # (Auto) 1.9 0.4-5.4 10 ^3/uL Monocytes # (Auto) 0.5 0-1.3 10 ^3/uL Eosinophils # (Auto) 0.1 0-0.8 10 ^3/uL Basophils # (Auto) 0 0-0.2 10 ^3/uL Nucleated Red Blood Cells 0.0 % Sodium Level 140 136-145 mmol/L Potassium Level 4.3 3.5-5.1 mmol/L Chloride Level 108 H 98-107 mmol/L Carbon Dioxide Level 26 20-31 mmol/L Anion Gap 6 5-15 Blood Urea Nitrogen 21 9-23 mg/dL Creatinine 1.15 0.700-1.30 mg/dL Glomerular Filtration Rate Calc 68 >90 mL/min BUN/Creatinine Ratio 18.3 10.0-20.0 Serum Glucose 145 H 74-106 mg/dL Lactic Acid Level 1.5 0.4-2.0 mmol/L Calcium Level 10.8 H 8.7-10.4 mg/dL B-Type Natriuretic Peptide 307.38 0-100 pg/mL Assessment/Plan Assessment/Plan Assessment Acute on chronic respiratory failure COPD exacerbation Elevated troponin,? Demand ischemia Hypertension ? Pneumonitis Plan Admit the patient to Med surge to the hospitalist D-dimer pending Resume home medications Azithromycin Echocardiogram pending Continue treatment per orders. Plan discussed with: Patient My Orders Orders - JADA SILVA AGACNP Procedure Category Date Status Time D-Dimer LAB 11/21/24 In Process 22:20 Albuterol Medneb PHA 11/21/24 Logged (Ventolin Medneb) 22:30 Ipratropium Medneb PHA 11/21/24 Logged (Atrovent Medneb) 22:30 Atorvastatin (Lipitor) PHA 11/22/24 Logged 22:00 Azithromycin 500mg/ PHA 11/22/24 Logged 250ml (Zithromax 50 10:00 Amlodipine Tablet PHA 11/22/24 Logged (Norvasc Tablet) 10:00 Apixaban (Eliquis) PHA 11/22/24 Logged 10:00 Montelukast Tablet PHA 11/22/24 Logged (Singulair Tablet) 22:00 Basic Metabolic Panel LAB 11/22/24 Verified 04:00 Admit ADMIT 11/21/24 Transmitted 22:20 Ondansetron Hcl PHA 11/21/24 Logged (Zofran) 22:30 Cardiac DIET 11/22/24 Transmitted Diet-2gna,Lofat,Lochol Breakfast Echo 2d Mode Cardiac US 11/21/24 Logged DOP 22:20 Condition: Stable MIA 11/21/24 In Process 22:20 Acetaminophen Tablet PHA 11/21/24 Logged (Tylenol Tablet) 22:30 Bedrest With Bathroom MIA 11/21/24 In Process Privileg 22:20 Aspirin Tablet PHA 11/22/24 Logged 10:00 Date of Service: Nov 21, 2024 Billing Provider: JADA SILVA Common Visit Codes: 54963-[id number] INP/OBS CARE (HIGH) JADA SILVA Nov 21, 2024 22:57
[2024-11-22] VITALS (9 sets, daily range): BP systolic 138–155; BP diastolic 79–84; PULSE 77–102; RESP 16–20; TEMP 97.6–98; O2SAT 93–100
[2024-11-22] MEDS: ASPirin 325 MG TAB PO ONE (00:49)
[2024-11-22] MEDS: methylPREDNISolone SOD SUCC 125 MG/2 ML VL IV ONE (02:24)
[2024-11-22] MEDS: AZITHROMYCIN 500MG/ 250ML 250 ML IV ONE (02:24)
[2024-11-22 06:37] LABS: Chloride 107 mmol/L (98-107); Potassium 4.1 mmol/L (3.5-5.1); Sodium 138 mmol/L (136-145)
[2024-11-22 06:38] LABS: Anion Gap 9 (5-15); Carbon Dioxide 22 mmol/L (20-31)
--- NOTE | 2024-11-22 06:42 | ECG ---
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
[2024-11-22 06:43] LABS: BUN/Creatinine Ratio 28.3 (10.0-20.0)
[2024-11-22 06:44] LABS: Blood Urea Nitrogen 28 mg/dL (9-23); Calcium 10.6 mg/dL (8.7-10.4); Glucose 156 mg/dL (74-106)
[2024-11-22] MEDS: ALBUTEROL SULF 2.5 MG/0.5ML(0.5%) NEB SOLN NEB PRN (09:48)
[2024-11-22] MEDS: IPRATROPIUM BROM 0.5 MG/2.5ML INH SOL NEB PRN (09:49)
[2024-11-22] MEDS: APIXABAN 5 MG TAB PO SCH (10:00)
[2024-11-22 10:43] LABS: Hepatitis B Surface Antigen Negative (Negative); Hepatitis C Antibody Negative (Negative)
[2024-11-22] MEDS: ASPirin 81 mg TAB PO SCH (11:15)
[2024-11-22] MEDS: amLODIPine BESYLATE 5 MG TAB PO SCH (11:15)
[2024-11-22] MEDS: AZITHROMYCIN 500MG/ 250ML 250 ML IV SCH (11:30)
--- NOTE | 2024-11-22 13:17 | DVHSR ---
APPROVED REPORT EXAM: Two-dimensional and M-mode echocardiogram with Doppler and color Doppler. Blood Pressure: 117/59 mmHg INDICATION EF RISK FACTORS Height: 5'9", Weight: 213 DIMENSIONS LVDd5.1 (3.8-5.7cm)LA (2D)4.3 (1.9-4.0cm)Aortic Root4.0 (2.0-3.7cm) LVDs3.1 (2.5-4.0cm)LA (MM) (1.9-4.0cm)Aortic Cusp Exc2.1 (1.5-2.0cm) EF (%) 69.0 (55-70%)Rt. Atrium4.5 (1.9-4.0cm)Asc. Aorta cm IVSd1.0 (0.7-1.1cm)RV (D) (1.8-2.4cm) Mitral Valve MitralMitral Stenosis E/A ratio0.02D MVAcm2 Aortic Valve Aortic ValveAortic Stenosis LVOT Diameter2.6 (1.8-2.4cm)Doppler AVAcm2 2D AVA2.52cm2 AI P 1/2 Nlzz496.40ms Tricuspid Valve TR Velocity3.79m/s [id number] LEFT VENTRICLE The left ventricle is of normal size. Wall thickness is normal. Ejection fraction is normal and is estimated at 60-65%. There is flattening of the intraventricular septum during systole consistent wi th right-sided pressure overload. Diastolic function is not well assessed. RIGHT VENTRICLE Moderately dilated in size. Systolic function is severely decreased. ATRIA The left atrium is mildly dilated in size. The right atrium is moderately dilated in size. Not well visualized. MITRAL VALVE There appears to be mild prolapse of the leaflets. There is [id number]-[id number]-bidnvv mitral regurgitation but the severity is not adequately assessed. PULMONIC VALVE Likely normal. TRICUSPID VALVE Normal structure and function. There is mild central tricuspid regurgitation. PA systolic pressure is estimated at 65-70 mm Hg. AORTIC VALVE Trileaflet in morphology. Leaflets are mildly calcified. No significant stenosis or regurgitation. GREAT VESSELS Aortic root measures 4.0 cm at the level of the sinuses of Valsalva. Proximal ascending aorta is not well visualized. PERICARDIAL EFFUSION No significant pericardial effusion. IVC is not well visualized. Other Information Quality : Technically LimitedRhythm : Technically limited study due to body habitus. Conclusion The study is technically limited. Normal left ventricular size and systolic function. Ejection fraction is estimated at 60-65%. Flattening of the intraventricular septum during systole consistent with right-sided pressure overloa d. Dilated right ventricle with severely decreased systolic function. There is [id number]-[id number] mitral regurgitation but the severity is not adequately assessed with the study. PA systolic pressure is estimated at 65-70 mm Hg.
--- NOTE | 2024-11-22 16:24 | DVH ---
BILATERAL LOWER EXTREMITY VENOUS DOPPLER CLINICAL HISTORY: Rule out Pe Technique: Duplex Doppler evaluation of the deep venous systems of both lower extremities from the co mmon femoral veins to the popliteal veins including color Doppler and spectral/pulsed waveform analys is was performed. COMPARISON: US BILAT LOWER DVT on DOS: 12/08/23, US BILAT LOWER DVT on DOS: 07/20/23 FINDINGS: There is moderate nonocclusive thrombus seen in the right popliteal vein which is noncompressible. The right and left common femoral, superficial femoral, posterior tibial and left popliteal veins ap pear patent with normal augmentation, phasicity, compressibility and color-flow. IMPRESSION: 1. Moderate nonocclusive thrombus in the right popliteal vein. 2. There is no sonographic evidence for DVT in the left leg. HS:Y
[2024-11-22] MEDS ORDERED: IOHEXOL 350 MG/ML 100ML IJ ONE (16:26)
[2024-11-22] MEDS: SODIUM CHLORIDE 0.9% 1,000 ML IV SCH (16:39)
[2024-11-22] MEDS: ENOXAPARIN SOD 100 MG/1 ML SYRINGE SC SCH (16:39)
--- NOTE | 2024-11-22 17:20 | DVHPN2 ---
Subjective Patient continues to report having left lower extremity pain as well as intermittent chest pain with shortness of breath and severe generalized weakness. Reviewed: Care Plan, H&P, Labs, Medications Changes from previous H/P or p: No Changes General: Per HPI Objective Vitals Vital Signs Date Time Temp Pulse Resp B/P (MAP) Pulse Ox O2 Delivery O2 Flow Rate FiO2 11/22/24 16:56 98.0 77 18 151/79 (103) 94 98.0 11/22/24 13:15 Nasal Cannula* 2 28 General Appearance: Alert, Oriented X3, Cooperative, mild distress HEENT: Atraumatic, PERRLA Lungs: Clear to auscultation, Normal air movement Cardiovascular: Normal S1, Normal S2 Abdomen: Normal bowel sounds, Soft, No tenderness, No hepatospenomegaly Genitourinary: No Apparent Abnormalities Musculoskeletal: Normal sensory function, Normal motor function Neuro: Normal gait, Normal speech Psych/Mental Status: Mental status NL, Mood NL Medications Current Medications Medications Dose Ordered Sig/Joaquin Route Start Time Stop Time Status Last Admin Dose Admin Albuterol 2.5 mg Q6HPRN PRN NEB 11/21/24 22:30 11/22/24 09:48 2.5 MG Ipratropium [place] 0.5 mg Q6HPRN PRN NEB 11/21/24 22:30 11/22/24 09:49 0.5 MG Atorvastatin Calcium 10 mg HS PO 11/22/24 22:00 Azithromycin 250 ml @ 125 mls/hr DAILY IV 11/22/24 10:00 11/22/24 11:30 125 MLS/HR Amlodipine Besylate 5 mg DAILY PO 11/22/24 10:00 11/22/24 11:15 5 MG Apixaban 5 mg BID PO 11/22/24 10:00 Hold Montelukast Sodium 10 mg HS PO 11/22/24 22:00 Ondansetron HCl 4 mg Q4HP PRN IV 11/21/24 22:30 Acetaminophen 650 mg Q6HP PRN PO 11/21/24 22:30 Aspirin 81 mg DAILY PO 11/22/24 10:00 11/22/24 11:15 81 MG Enoxaparin Sodium 100 mg Q12H SC 11/22/24 16:30 11/22/24 16:39 100 MG Sodium Chloride 1,000 ml @ 75 mls/hr [id number] IV 11/22/24 16:30 11/22/24 16:39 75 MLS/HR Laboratory Results Laboratory Tests 11/21/24 21:12 11/22/24 05:17 Chemistry Test 11/21/24 21:12 11/22/24 05:17 Calcium Level 10.8 mg/dL (8.7-10.4) H 10.6 mg/dL (8.7-10.4) H Coagulation Test 11/21/24 21:12 D-Dimer, Quantitative 13.18 mg/L FEU (0.0-0.49) H Cardiac Markers Test 11/21/24 21:12 B-Type Natriuretic Peptide 307.38 pg/mL (0-100) Labs and/or images reviewed: Labs reviewed by me, Image(s) reviewed by me Assessment/Plan Assessment/Plan Impression: -DVT to right lower extremity -bilateral pulmonary embolism including right main pulmonary artery -obesity -COPD -asthma -primary hypertension -pulmonary hypertension -acute hypoxic Respiratory failure Plan: -transfer to telemetry unit -start anticoagulation with Lovenox -DVT and PE study ordered, results reviewed. -IR consultation for PE evaluation for thrombectomy -O2 supplementation to keep saturation greater than 92% -gentle IV hydration -repeat labs in a.m. Critical care time spent with patient discussing and formulating plan of care: 40 minutes. This does not include time spent performing procedures. This medical document was created using an electronic medical record system with [employer] dictation system. Although this document has been carefully reviewed, there may still be some phonetic and typographical errors. These areas are purely typographical due to imperfections of the software programs, and do not reflect any compromise in the patient's medical care. Plan discussed with: Patient, Other (RN) My Orders Orders - CARI HESTER WORKER'S COMPENSATION CLAIMS EXAMINER Procedure Category Date Status Time Ct Angio Chest CT 11/22/24 Taken Contrast 15:14 Bilat Lower Dvt US 11/22/24 Resulted 15:15 Enoxaparin Sodium PHA 11/22/24 In Process (Lovenox) 16:30 Sodium Chloride 0.9% PHA 11/22/24 In Process 16:30 Transfer Orders XFER 11/22/24 Transmitted 16:59 Factor V Leiden LAB 11/22/24 Verified Mutation 17:14 Protein S-Antigen LAB 11/22/24 Verified Total & Free 17:14 Protein C Antigen LAB 11/22/24 Verified 17:14 Date of Service: Nov 22, 2024 Billing Provider: CARI HESTER NP Common Visit Codes: [id number] CARE 30-74 MIN CARI HESTER NP Nov 22, 2024 17:20
--- NOTE | 2024-11-22 17:41 | DVH ---
PROCEDURE: CT CT ANGIO CHEST CONTRAST 11/22/2024 04:54 PM INDICATION: rule out PE, History of PE COMPARISON: Venous doppler dated 11/22/2024, CT CT ANGIO CHEST CONTRAST on DOS: 12/08/23, CT CT ANGIO C HEST CONTRAST on DOS: 07/19/23 TECHNIQUE: Coverage: Thorax IV contrast: Administered Phases: Arterial Multiplanar 3-D Maximum Intensity Projection images (MIP) reconstructions were created by the technol sana in the coronal and sagittal planes as part of the CT angiography protocol. Adverse events: None Medication laboratory values were reviewed to verify the patient meets criteria for contrast administ ration. All CT scans at this medical facility are performed using dose modulation techniques as appropriate t o a performed exam including the following: Automated exposure control was utilized; adjustment of th e MA and/or KV according to patient size; and use of iterative reconstruction technique. Radiation dose: CTDIvol 25 mGy, DLP 885 mGy*cm. FINDINGS: Cardiovascular: Bilateral pulmonary emboli are seen in left distal pulmonary artery extending to the upper and lower lobar segmental and subsegmental branches. Pulmonary emboli are seen in the right up per, middle and lower lobar segmental and subsegmental branches. Mild fusiform aneurysm of the ascen ding aorta with maximal diameter of 3.9 cm. No evidence of aortic dissection. The heart is normal in size. Mild rightward deviation of interventricular septum noted suggesting right heart strain. RV/ L V ratio is 1.2. Lungs: No focal consolidation. No pleural effusion. No pneumothorax. The airways are patent. Moderate ly elevated right hemidiaphragm with associated subsegmental right lower lobe with atelectasis. Thyroid: Unremarkable Esophagus: Unremarkable. Lymphatics: No hilar or mediastinal lymphadenopathy. Bones/soft tissues: No acute abnormality. Severe bilateral glenohumeral joint osteoarthritis. Mild m ultilevel degenerative disc disease of the thoracic spine. Upper abdomen: No acute abnormality. Mildly nodular liver contour suggestive of cirrhosis. Other: None. IMPRESSION: 1. Moderate burden bilateral pulmonary emboli with evidence of right heart strain. 2. Mild fusiform aneurysm of the ascending aorta with maximum diameter of 3.9 cm. We are in the process of contacting a clinical steam pan sponger in charge of the patient 2 conveyed the fi ndings.
[2024-11-22] MEDS: MONTELUKAST SODIUM 10 MG TAB PO SCH (22:04)
[2024-11-22] MEDS: ATORVASTATIN 20 MG TAB PO SCH (22:04)
[2024-11-22] MEDS: TAMSULOSIN HYDROCHLORIDE 0.4 MG CAP PO SCH (22:04)
[2024-11-23] VITALS (18 sets, daily range): BP systolic 106–143; BP diastolic 59–88; PULSE 64–88; RESP 13–23; TEMP 97.4–97.8; O2SAT 92–100
[2024-11-23] MEDS: HYDROcodone-ACET 5/325MG TAB PO PRN (01:00)
[2024-11-23 08:25] LABS: INR 1.11 (0.9-1.15); Partial Thromboplastin Time 32.8 SEC (24.5-34.5); Prothrombin Time 11.6 sec (9.3-11.8)
[2024-11-23] MEDS: IODIXANOL 320MG/ML 100ML BTL IV ONE ×3 (08:26→10:28)
[2024-11-23] MEDS: HEPARIN IN NS 1000Units/500mL 1,500 ML ONE (08:26)
[2024-11-23] MEDS: fentaNYL CITRATE 100 MCG/2 ML VL ONE (09:51)
[2024-11-23] MEDS: MIDAZOLAM HCL 2MG/2ML 2ml VIAL (1mg/ml) ONE (09:51)
--- NOTE | 2024-11-23 09:55 | DVHPN2 ---
Subjective Patient continues to report having left lower extremity pain as well as intermittent chest pain with shortness of breath and severe generalized weakness. Reviewed: Care Plan, H&P, Labs, Medications Changes from previous H/P or p: No Changes General: Per HPI Objective Vitals Vital Signs Date Time Temp Pulse Resp B/P (MAP) Pulse Ox O2 Delivery O2 Flow Rate FiO2 11/23/24 09:10 97.8 73 18 106/59 (75) 98 97.8 11/23/24 08:51 Nasal Cannula* 2 28 Intake/Output Intake and Output 11/23/24 07:00 Intake Total 650 ml Output Total 8 ml Balance 642 ml Intake Oral 400 ml IV Total 250 ml Output Urine Total 8 ml # Voids 3 # Bowel Movements 1 General Appearance: Alert, Oriented X3, Cooperative, mild distress HEENT: Atraumatic, PERRLA Lungs: Clear to auscultation, Normal air movement Cardiovascular: Normal S1, Normal S2 Abdomen: Normal bowel sounds, Soft, No tenderness, No hepatospenomegaly Genitourinary: No Apparent Abnormalities Musculoskeletal: Normal sensory function, Normal motor function Neuro: Normal gait, Normal speech Psych/Mental Status: Mental status NL, Mood NL Medications Current Medications Medications Dose Ordered Sig/Joaquin Route Start Time Stop Time Status Last Admin Dose Admin Albuterol 2.5 mg Q6HPRN PRN NEB 11/21/24 22:30 11/22/24 21:41 2.5 MG Ipratropium [place] 0.5 mg Q6HPRN PRN NEB 11/21/24 22:30 11/22/24 21:41 0.5 MG Atorvastatin Calcium 10 mg HS PO 11/22/24 22:00 11/22/24 22:04 10 MG Azithromycin 250 ml @ 125 mls/hr DAILY IV 11/22/24 10:00 11/22/24 11:30 125 MLS/HR Amlodipine Besylate 5 mg DAILY PO 11/22/24 10:00 11/22/24 11:15 5 MG Apixaban 5 mg BID PO 11/22/24 10:00 Hold Montelukast Sodium 10 mg HS PO 11/22/24 22:00 11/22/24 22:04 10 MG Ondansetron HCl 4 mg Q4HP PRN IV 11/21/24 22:30 Acetaminophen 650 mg Q6HP PRN PO 11/21/24 22:30 Aspirin 81 mg DAILY PO 11/22/24 10:00 11/22/24 11:15 81 MG Enoxaparin Sodium 100 mg Q12H SC 11/22/24 16:30 11/23/24 04:58 100 MG Sodium Chloride 1,000 ml @ 75 mls/hr [id number] IV 11/22/24 16:30 11/22/24 16:39 75 MLS/HR Tamsulosin HCl 0.8 mg BID PO 11/22/24 22:00 11/22/24 22:04 0.8 MG Acetaminophen/ Hydrocodone Bitart 1 tab Q8HPRN PRN PO 11/22/24 21:45 11/23/24 01:00 1 TAB Laboratory Results Laboratory Tests 11/21/24 21:12 11/22/24 05:17 Coagulation Test 11/22/24 18:32 11/23/24 07:49 Protein C Antigen Pending Protein S Antigen Pending Free Protein S Antigen Pending Factor V Leiden Mutation Pending Prothrombin Time 11.6 sec (9.3-11.8) Prothrombin Time INR 1.11 (0.9-1.15) Activated Partial Thromboplast Time 32.8 SEC (24.5-34.5) Microbiology Microbiology Date/Time Source Procedure Growth Status 11/21/24 21:12 Blood Blood Culture - Preliminary NO GROWTH AFTER 24 HOURS OF INCUBATION. Resulted Labs and/or images reviewed: Labs reviewed by me, Image(s) reviewed by me Assessment/Plan Assessment/Plan Impression: -DVT to right lower extremity -bilateral pulmonary embolism including right main pulmonary artery -obesity -COPD -asthma -primary hypertension -pulmonary hypertension -acute hypoxic Respiratory failure Plan: -events: patient upgraded to step-down ICU after receiving results of CT angiogram of the chest. Patient to labor arbitrator for thrombectomy after discussing the case with interventional radiologist yesterday evening. Plans to start Eliquis this evening, transitioning from Lovenox. -transition anticoagulation to Eliquis -DVT and PE study ordered, results reviewed. -IR consultation for PE evaluation for thrombectomy -O2 supplementation to keep saturation greater than 92% -gentle IV hydration -repeat labs this p.m. Critical care time spent with patient discussing and formulating plan of care: 40 minutes. This does not include time spent performing procedures. This medical document was created using an electronic medical record system with [employer] dictation system. Although this document has been carefully reviewed, there may still be some phonetic and typographical errors. These areas are purely typographical due to imperfections of the software programs, and do not reflect any compromise in the patient's medical care. Plan discussed with: Patient, Other (RN) My Orders Orders - CARI HESTER NP Procedure Category Date Status Time Ct Angio Chest CT 11/22/24 Resulted Contrast 15:14 Bilat Lower Dvt US 11/22/24 Resulted 15:15 Enoxaparin Sodium PHA 11/22/24 In Process (Lovenox) 16:30 Sodium Chloride 0.9% PHA 11/22/24 In Process 16:30 Transfer Orders XFER 11/22/24 Transmitted 16:59 Factor V Leiden LAB 11/22/24 In Process Mutation 17:14 Protein S-Antigen LAB 11/22/24 In Process Total & Free 17:14 Protein C Antigen LAB 11/22/24 In Process 17:14 * Radiologist Consult CONS 11/22/24 Transmitted 17:20 Transfer Orders XFER 11/22/24 Transmitted 18:10 Complete Blood Count LAB 11/23/24 Verified 16:00 Basic Metabolic Panel LAB 11/23/24 Verified 16:00 Apixaban (Eliquis) PHA 11/23/24 Verified 10:00 Apixaban (Eliquis) PHA 11/23/24 Verified 10:00 Date of Service: Nov 23, 2024 Billing Provider: CARI HESTER NP Common Visit Codes: [id number] CARE 30-74 MIN CARI HESTER NP Nov 23, 2024 09:55
[2024-11-23] MEDS ORDERED: APIXABAN 5 MG TAB PO SCH (10:00)
[2024-11-23] MEDS: APIXABAN 5 MG TAB PO SCH (10:00)
[2024-11-23] MEDS: LIDOCAINE 2%HCL (LOCAL ANESTH.) INJ 20ML MDV ONE (10:12)
[2024-11-23] MEDS: HEPARIN SODIUM (PORCINE) 5000 UNITS/ML 1ML VIAL ONE (10:28)
[2024-11-23] MEDS ORDERED: IODIXANOL 320MG/ML 100ML BTL IV ONE (11:23)
[2024-11-23] MEDS ORDERED: MIDAZOLAM HCL 2MG/2ML 2ml VIAL (1mg/ml) ONE (11:29)
--- NOTE | 2024-11-23 12:27 | DVH ---
XY PERC.ARTERIAL THROMBECTOMY, HISTORY: PULMONARY THROMBECTOMY, Bilateral pulmonary emboli, intermediate high risk, submassive PE, P CINDY 3. PROCEDURE: Informed consent was obtained. The patient was placed supine on the interventional table. The right groin was prepped with chlorhexidine which was allowed to dry and draped in sterile fashion . Time out was performed. IV sedation and 1% local lidocaine were administered. With real-time US, a micropuncture kit was entered into the right common femoral vein, an image documenting patency was se nt to PACS, and a 6 Sinhala vascular sheath was placed. Over a guide wire, a pigtail catheter was plac ed in the main pulmonary artery. PA pressure and pulmonary arteriogram were obtained. 5000 units of h eparin were administered IV. With an amplatz wire in the left pulmonary artery, the vascular sheath w as removed and a 26 Fr Inari Sheath was placed into the IVC. Then, a 24 Fr Flow Treiver device was pl aced into the left pulmonary artery and aspiration was performed. Blood was returned to the patient v ia the Flow Saver device. The catheter was repositioned into the right pulmonary artery and aspiratio n was performed. A completion pulmonary angiogram was obtained and pressure was measured. Patient com [place] of shoulder and neck pain throughout the case. The catheters and sheath were removed. Hemostas is was obtained with manual pressure. No immediate complication was identified. DAP 25.66 FLUOROSCOPY TIME: 16.3 minutes. CONTRAST USED:80 mL [id number]. SEDATION: Dr. Rony Langston was personally responsible for the administration of moderate sedation during the procedure performed, including the use of an independent trained observer who had no other duties during the procedure. The drugs utilized were IV fentanyl and versed (see nursing log for details). The total time of supervision by the attending physician was approximately 100 minutes. FINDINGS: Thrombus removed from the left and right pulmonary arteries via mechanical aspiration . How ever some non-occlusive thrombus remains in the pulmonary arteries due to the chronic nature of the thrombus. Pulmonary artery pressure measurements: Pre: Post: IMPRESSION: Thrombus removed from the left and right pulmonary arteries via mechanical aspiration . However some non-occlusive thrombus remains in the pulmonary arteries due to the chronic nature of the thrombus. Pulmonary artery pressure measurements: mm Hg Pre: Post: Plan: Bedrest and right leg straight for 2 hours. Ok to resume anticoagulation. Ok to ambulate after 2 hours if dressing is dry.
[2024-11-23 16:06] LABS: Basophils # (auto) 0 10 ^3/uL (0-0.2); Basophils % (auto) 0.4 % (0.0-2.0); Eosinophils # (auto) 0.3 10 ^3/uL (0-0.8); Eosinophils % (auto) 2.3 % (0.0-7.0); Hematocrit 35.5 % (41.0-53.0); Hemoglobin 12.2 g/dL (13.5-17.5); Lymphocytes # (auto) 4.8 10 ^3/uL (0.4-5.4); Lymphocytes % (auto) 38.8 % (10.0-50.0); Mean Corpuscular Hemoglobin 32.2 pg (28.0-32.0); Mean Corpuscular Hgb Conc. 34.3 g/dL (32.0-36.0); Mean Corpuscular Volume 93.9 fL (80.0-100.0); Monocytes # (auto) 0.8 10 ^3/uL (0-1.3); Monocytes % (auto) 6.8 % (0.0-12.0); Neutrophils # (auto) 6.4 10 ^3/uL (1.6-8.6); Neutrophils % (auto) 51.7 % (37.0-80.0); Nucleated Red Blood Cells % 0.1 %; Platelet Count (auto) 193 10^3/uL (140-450); Red Blood Cells 3.78 10^6/uL (4.5-5.90); Red Cell Distribution Width 14.5 % (11.8-14.3); White Blood Cell 12.3 10^3/uL (4.4-10.8)
[2024-11-23 16:16] LABS: Sodium 140 mmol/L (136-145)
[2024-11-23 16:17] LABS: Anion Gap 5 (5-15); Carbon Dioxide 27 mmol/L (20-31)
[2024-11-23 16:22] LABS: BUN/Creatinine Ratio 20.2 (10.0-20.0); Blood Urea Nitrogen 17 mg/dL (9-23); Glucose 92 mg/dL (74-106)
[2024-11-23 16:27] LABS: Calcium 10.4 mg/dL (8.7-10.4); Chloride 108 mmol/L (98-107)
[2024-11-24] VITALS (13 sets, daily range): BP systolic 97–142; BP diastolic 56–78; PULSE 58–102; RESP 17–20; TEMP 97.4–97.9; O2SAT 91–98
[2024-11-24] MEDS: DOCUSATE SOD 100 MG CAP PO PRN (17:39)
--- NOTE | 2024-11-24 18:07 | DVHPN2 ---
Reviewed: Care Plan, H&P, Labs, Medications Changes from previous H/P or p: No Changes General: Per HPI Objective Vitals Vital Signs Date Time Temp Pulse Resp B/P (MAP) Pulse Ox O2 Delivery O2 Flow Rate FiO2 11/24/24 17:00 97.4 82 17 142/73 (96) 91 97.4 11/24/24 10:37 Nasal Cannula 3.0 11/24/24 10:37 32 Intake/Output Intake and Output 11/24/24 07:00 Intake Total 2110 ml Output Total 1500 ml Balance 610 ml Intake Oral 2110 ml Output Urine Total 1500 ml # Voids 6 General Appearance: Alert, Oriented X3, Cooperative, mild distress HEENT: Atraumatic, PERRLA Lungs: Clear to auscultation, Normal air movement Cardiovascular: Normal S1, Normal S2 Abdomen: Normal bowel sounds, Soft, No tenderness, No hepatospenomegaly Genitourinary: No Apparent Abnormalities Musculoskeletal: Normal sensory function, Normal motor function Neuro: Normal gait, Normal speech Psych/Mental Status: Mental status NL, Mood NL Medications Current Medications Medications Dose Ordered Sig/Joaquin Route Start Time Stop Time Status Last Admin Dose Admin Albuterol 2.5 mg Q6HPRN PRN NEB 11/21/24 22:30 11/24/24 10:35 2.5 MG Ipratropium [place] 0.5 mg Q6HPRN PRN NEB 11/21/24 22:30 11/24/24 10:35 0.5 MG Atorvastatin Calcium 10 mg HS PO 11/22/24 22:00 11/23/24 21:28 10 MG Azithromycin 250 ml @ 125 mls/hr DAILY IV 11/22/24 10:00 11/24/24 09:01 125 MLS/HR Amlodipine Besylate 5 mg DAILY PO 11/22/24 10:00 11/22/24 11:15 5 MG Montelukast Sodium 10 mg HS PO 11/22/24 22:00 11/23/24 21:27 10 MG Ondansetron HCl 4 mg Q4HP PRN IV 11/21/24 22:30 Acetaminophen 650 mg Q6HP PRN PO 11/21/24 22:30 Aspirin 81 mg DAILY PO 11/22/24 10:00 11/24/24 09:01 81 MG Sodium Chloride 1,000 ml @ 75 mls/hr [id number] IV 11/22/24 16:30 11/24/24 09:00 75 MLS/HR Tamsulosin HCl 0.8 mg BID PO 11/22/24 22:00 11/24/24 09:01 0.8 MG Acetaminophen/ Hydrocodone Bitart 1 tab Q8HPRN PRN PO 11/22/24 21:45 11/24/24 09:04 1 TAB Apixaban 10 mg BID PO 11/23/24 10:00 11/30/24 09:59 11/24/24 09:01 10 MG Apixaban 5 mg BID PO 11/30/24 10:00 Docusate Sodium 100 mg BID PRN PO 11/24/24 16:50 11/24/24 17:39 100 MG Laboratory Results Laboratory Tests 11/23/24 15:53 Microbiology Microbiology Date/Time Source Procedure Growth Status 11/21/24 21:12 Blood Blood Culture - Preliminary NO GROWTH AFTER 48 HOURS OF INCUBATION. Resulted Labs and/or images reviewed: Labs reviewed by me, Image(s) reviewed by me Assessment/Plan Assessment/Plan Impression: -DVT to right lower extremity -bilateral pulmonary embolism including right main pulmonary artery -obesity -COPD -asthma -primary hypertension -pulmonary hypertension -acute hypoxic Respiratory failure PLAN -events: patient upgraded to step-down ICU after receiving results of CT angiogram of the chest. Patient to laborer high density press for thrombectomy after discussing the case with interventional radiologist yesterday evening. Plans to start Eliquis this evening, transitioning from Lovenox. -transition anticoagulation to Eliquis -DVT and PE study ordered, results reviewed. -IR consultation for PE evaluation for thrombectomy -O2 supplementation to keep saturation greater than 92% -gentle IV hydration -repeat labs this p.m. Critical care time spent with patient discussing and formulating plan of care: 40 minutes. This does not include time spent performing procedures. Plan discussed with: Patient My Orders Orders - SIGRID FOSS DO Procedure Category Date Status Time Docusate Sodium PHA 11/24/24 In Process Capsule (Colace 16:50 *Consult CONS 11/24/24 Verified / 18:05 Date of Service: Nov 24, 2024 Billing Provider: SIGRID FOSS DO Common Visit Codes: [id number] INP/OBS CARE(HIGH) SIGRID FOSS DO Nov 24, 2024 18:07
[2024-11-24 20:06] LABS: Protein S Antigen Free 112 % (61-136); Proten S Antigen Total 103 % (60-150)
[2024-11-24 22:27] LABS: COVID19 ANTIGEN SOFIA FIA NEGATIVE (NEGATIVE); Rapid Influenza A Negative (Negative); Rapid Influenza B Negative (Negative)
--- NOTE | 2024-11-24 23:43 | DVHINCON2 ---
Date of service: Nov 24, [address] Scruggs Reason for Consultation Acute hypoxic respiratory failure, pulmonary embolism, COPD, asthma History of Present Illness A 74-year-old man with past medical history of COPD, asthma, chronic kidney disease, GERD, dyslipidemia, and hypertension who presented to ED on 11/21/24 for evaluation of shortness of breath. Patient reported a 2-week history of worsening shortness of breath with associated cough. He reported chest pain with deep breathing, occasional chills. Denied current chest pain. Pt is on 3 L of nasal cannula oxygen at home for COPD. Patient was admitted for further care and pulmonary consultation is requested for evaluation and management due to the above findings. Review of Systems: 14-point review of systems negative unless otherwise noted above. Past Medical History: COPD, asthma, chronic kidney disease, GERD, dyslipidemia, and hypertension Past Surgical History: Nasal plasty Medications: Reviewed. Allergies: Cephalexin, penicillins. Family History: Alzheimer's disease Cerebral hemorrhage Cerebrovascular accident (CVA) Colon cancer heart attack thyroid cancer Social History: Nonsmoker. No alcohol or illicit drug use. Family History: Alzheimer's disease G8 MOTHER Cerebral hemorrhage G8 FATHER Cerebrovascular accident (CVA) G8 MOTHER Colon cancer G8 BROTHER FH: colon cancer FH: heart attack G8 MOTHER FH: thyroid cancer G8 MOTHER Allergies: Coded Allergies: Cephalexin (Verified Allergy, Mild, 10/19/21) Penicillins (Verified Allergy, Unknown, 07/21/23) Home Meds Active Scripts Apixaban Base (ELIQUIS) 5 Mg Tab, 5 MG PO BID for 60 Days, #120 TAB Prov:SELMA MARIEE MD 07/21/23 Reported Medications Atorvastatin Calcium (ATORVASTATIN CALCIUM) 10 Mg Tab, 1 TAB PO DAILY, #30 TAB 5 Refills 12/09/23 Fluticasone Propionate (Nasal) (Fluticasone Propionate) 50 Mcg/Act Spr, 50 MCG NA DAILY, SPR 12/09/23 Amlodipine Besylate (Amlodipine Besylate) 5 Mg Tab, 5 MG PO DAILY for 30 Days, MG 12/09/23 Trazodone Hcl (Trazodone Hcl) 50 Mg Tab, 50 MG PO HS, MG 12/09/23 Olmesartan Medoxomil (Benicar) 40 Mg Tab, 1 TAB PO DAILY, #30 TAB 5 Refills 12/09/23 Baclofen (Baclofen) 10 Mg Tab, 20 MG PO BID for 30 Days, MG 12/09/23 Tamsulosin Hcl (Tamsulosin Hcl) 0.4 Mg Cap, 2 CAP PO BID 07/19/23 Montelukast Sodium (MONTELUKAST SODIUM) 10 Mg Tab, 1 TAB PO DAILY 07/19/23 Pantoprazole Sodium Sesquihydr (Pantoprazole Sodium) 40 Mg Tab, 1 TAB PO DAILY 07/19/23 Bupropion Hcl (Bupropion Hcl Er) 200 Mg Tab, 1 TAB PO BID 07/19/23 Current Medications Current Medications Medications (Trade) Dose Ordered Sig/Joaquin Route PRN Reason Start Time Stop Time Status Last Admin Apixaban (Eliquis) 5 mg BID PO 11/30/24 10:00 Docusate Sodium (Colace Capsule) 100 mg BID PRN PO FOR CONSTIPATION 11/24/24 16:50 11/24/24 17:39 Vital Signs Vital Signs Date Time Temp Pulse Resp B/P (MAP) Pulse Ox O2 Delivery O2 Flow Rate FiO2 11/24/24 22:35 102 18 125/78 94 3.0 32 11/24/24 21:00 97.9 97.9 11/24/24 20:00 Nasal Cannula* Physical Exam Gen.: Patient lying in bed in no apparent distress. On supplemental oxygen. Head: Normocephalic, atraumatic. Eyes: EOMI/PERRLA. Ears: Normal hearing. Normal anatomy. Neck/trachea: Trachea midline, supple. Nose: Normal external anatomy. Mouth: Moist mucous membranes. Chest: Decreased air entry bilaterally. No wheezing or rhonchi. Cardiovascular: Positive S1, positive S2. Regular rate and rhythm. Abdomen: Positive bowel sounds in all 4 quadrants. Soft, non-tender, non- distended. : Deferred. Rectal: Deferred. Skin: Warm, dry. Intact. Extremities: 2+ radial pulses bilaterally. No lower extremity edema. Neuro: Awake, alert, oriented x3. No gross motor or sensory deficits. Cranial nerves II through XII intact. Gait not assessed. Labs/Diagnostic Data Labs Test 11/24/24 20:42 11/23/24 15:53 11/23/24 07:49 11/22/24 18:32 Range/Units Influenza Type A Antigen Negative Negative Influenza Type B Antigen Negative Negative SARS-CoV-2 Antigen (Rapid) Negative NEGATIVE White Blood Count 12.3 H 4.4-10.8 10^3/uL Red Blood Count 3.78 L 4.5-5.90 10^6/uL Hemoglobin 12.2 L 13.5-17.5 g/dL Hematocrit 35.5 L 41.0-53.0 % Mean Corpuscular Volume 93.9 80.0-100.0 fL Mean Corpuscular Hemoglobin 32.2 H 28.0-32.0 pg Mean Corpuscular Hemoglobin Concent 34.3 32.0-36.0 g/dL Red Cell Distribution Width 14.5 H 11.8-14.3 % Platelet Count 193 140-450 10^3/uL Mean Platelet Volume 7.3 6.9-10.8 fL Neutrophils (%) (Auto) 51.7 37.0-80.0 % Lymphocytes (%) (Auto) 38.8 10.0-50.0 % Monocytes (%) (Auto) 6.8 0.0-12.0 % Eosinophils (%) (Auto) 2.3 0.0-7.0 % Basophils (%) (Auto) 0.4 0.0-2.0 % Neutrophils # (Auto) 6.4 1.6-8.6 10 ^3/uL Lymphocytes # (Auto) 4.8 0.4-5.4 10 ^3/uL Monocytes # (Auto) 0.8 0-1.3 10 ^3/uL Eosinophils # (Auto) 0.3 0-0.8 10 ^3/uL Basophils # (Auto) 0 0-0.2 10 ^3/uL Nucleated Red Blood Cells 0.1 % Sodium Level 140 136-145 mmol/L Potassium Level 4.0 3.5-5.1 mmol/L Chloride Level 108 H 98-107 mmol/L Carbon Dioxide Level 27 20-31 mmol/L Anion Gap 5 5-15 Blood Urea Nitrogen 17 # 9-23 mg/dL Creatinine 0.84 0.700-1.30 mg/dL Glomerular Filtration Rate Calc 93 >90 mL/min BUN/Creatinine Ratio 20.2 H 10.0-20.0 Serum Glucose 92 74-106 mg/dL Calcium Level 10.4 8.7-10.4 mg/dL Prothrombin Time 11.6 9.3-11.8 sec Prothrombin Time INR 1.11 0.9-1.15 Activated Partial Thromboplast Time 32.8 24.5-34.5 SEC Protein S Antigen 103 60-150 % Free Protein S Antigen 112 61-136 % Test 11/22/24 05:17 11/21/24 22:14 11/21/24 21:12 Range/Units Hepatitis B Surface Antigen Negative Negative Hepatitis C Antibody Negative Negative Troponin I High Sensitivity 151 *H </=54 ng/L D-Dimer, Quantitative 13.18 H 0.0-0.49 mg/L FEU Lactic Acid Level 1.5 0.4-2.0 mmol/L B-Type Natriuretic Peptide 307.38 0-100 pg/mL Microbiology Date/Time Source Procedure Growth Status 11/21/24 21:12 Blood Blood Culture - Preliminary NO GROWTH AFTER 72 HOURS OF INCUBATION. Resulted Assessment Impression: Acute hypoxic respiratory failure Dependence on supplemental oxygen Pulmonary embolism Deep venous thrombosis COPD Asthma Obesity BMI 30.3 Plan: Supplemental oxygen 3 LPM NC Titrate to keep O2 sats above 92%. Taper O2 as tolerated. Continue bronchodilators. On montelukast Anticoagulation w/ Eliquis IR evaluation for thrombectomy Pain control Avoid oversedation Monitor renal function. Monitor electrolytes. Supplement as necessary. Monitor ins and outs. DVT prophylaxis. Prognosis: Poor given patient's multiple co-morbidities. Rest of plan per hospitalist and other consultants. A total of 76 minutes of clinical care time was spent reviewing the patient record, examining the patient, making a diagnostic and therapeutic plan, discussing this plan with the medical personnel, following up on diagnostic studies and following the patient for clinical stability excluding any and all procedures. At least 50% of this time was spent in direct, [id number] contact. Thank you Dr Scruggs for allowing me to participate in this patient's care. Further recommendations will depend on the patient's clinical course. Please do not hesitate to contact me if you have any questions or concerns. This medical document was created using an electronic medical record system with [employer] system. Although these documentations are being carefully reviewed, there may still be some phonetic and typographical changes. The errors are purely typographical, due to imperfection on the software program, and do not reflect any compromise in the patient's medical care. Plan discussed with: Patient, Other (RN/ALEXEI [place]/) OSVALDO FERNANDEZ MD Nov 24, 2024 23:43
[2024-11-25] VITALS (13 sets, daily range): BP systolic 86–109; BP diastolic 49–69; PULSE 68–98; RESP 16–21; TEMP 97.5–98.4; O2SAT 92–98
[2024-11-25 14:06] LABS: Protein C Antigen 137 % (60-150)
[2024-11-25] MEDS: LACTULOSE 20Gm/30ML SOLN PO PRN (14:43)
--- NOTE | 2024-11-25 20:43 | DVHPN2 ---
Reviewed: Care Plan, H&P, Labs, Medications General: Per HPI Objective Vitals Vital Signs Date Time Temp Pulse Resp B/P (MAP) Pulse Ox O2 Delivery O2 Flow Rate FiO2 11/25/24 17:00 98.1 86 16 108/58 (75) 98 98.1 11/25/24 09:43 Nasal Cannula* 2 28 Intake/Output Intake and Output 11/25/24 07:00 Intake Total 2475 ml Output Total 1100 ml Balance 1375 ml Intake Oral 1650 ml IV Total 825 ml Output Urine Total 1100 ml # Voids 3 General Appearance: Alert, Oriented X3, Cooperative, mild distress HEENT: Atraumatic, PERRLA Lungs: Clear to auscultation, Normal air movement Cardiovascular: Normal S1, Normal S2 Abdomen: Normal bowel sounds, Soft, No tenderness, No hepatospenomegaly Genitourinary: No Apparent Abnormalities Musculoskeletal: Normal sensory function, Normal motor function Neuro: Normal gait, Normal speech Psych/Mental Status: Mental status NL, Mood NL Medications Current Medications Medications Dose Ordered Sig/Joaquin Route Start Time Stop Time Status Last Admin Dose Admin Albuterol 2.5 mg Q6HPRN PRN NEB 11/21/24 22:30 11/25/24 09:43 2.5 MG Ipratropium [place] 0.5 mg Q6HPRN PRN NEB 11/21/24 22:30 11/25/24 09:43 0.5 MG Atorvastatin Calcium 10 mg HS PO 11/22/24 22:00 11/24/24 20:35 10 MG Azithromycin 250 ml @ 125 mls/hr DAILY IV 11/22/24 10:00 11/25/24 09:01 125 MLS/HR Amlodipine Besylate 5 mg DAILY PO 11/22/24 10:00 11/22/24 11:15 5 MG Montelukast Sodium 10 mg HS PO 11/22/24 22:00 11/24/24 20:36 10 MG Ondansetron HCl 4 mg Q4HP PRN IV 11/21/24 22:30 Acetaminophen 650 mg Q6HP PRN PO 11/21/24 22:30 Aspirin 81 mg DAILY PO 11/22/24 10:00 11/25/24 08:59 81 MG Sodium Chloride 1,000 ml @ 75 mls/hr [id number] IV 11/22/24 16:30 11/25/24 02:42 75 MLS/HR Tamsulosin HCl 0.8 mg BID PO 11/22/24 22:00 11/25/24 09:00 0.8 MG Acetaminophen/ Hydrocodone Bitart 1 tab Q8HPRN PRN PO 11/22/24 21:45 11/25/24 17:30 1 TAB Apixaban 10 mg BID PO 11/23/24 10:00 11/30/24 09:59 11/25/24 09:00 10 MG Apixaban 5 mg BID PO 11/30/24 10:00 Docusate Sodium 100 mg BID PRN PO 11/24/24 16:50 11/25/24 05:50 100 MG Lactulose 30 ml DAILYPRN PRN PO 11/25/24 14:00 11/25/24 14:43 30 ML Laboratory Results Laboratory Tests 11/23/24 15:53 Microbiology Microbiology Date/Time Source Procedure Growth Status 11/21/24 21:12 Blood Blood Culture - Preliminary NO GROWTH AFTER 72 HOURS OF INCUBATION. Resulted Assessment/Plan Assessment/Plan Impression: -DVT to right lower extremity -bilateral pulmonary embolism including right main pulmonary artery -obesity -COPD -asthma -primary hypertension -pulmonary hypertension -acute hypoxic Respiratory failure PLAN -events: patient upgraded to step-down ICU after receiving results of CT angiogram of the chest. Patient to laborer [place] for thrombectomy after discussing the case with interventional radiologist yesterday evening. Plans to start Eliquis this evening, transitioning from Lovenox. -transition anticoagulation to Eliquis -DVT and PE study ordered, results reviewed. -IR consultation for PE evaluation for thrombectomy -O2 supplementation to keep saturation greater than 92% -gentle IV hydration -repeat labs this p.m. Critical care time spent with patient discussing and formulating plan of care: 40 minutes. This does not include time spent performing procedures. My Orders Orders - SIGRID FOSS DO Procedure Category Date Status Time Lactulose Oral PHA 11/25/24 In Process 14:00 SIGRID FOSS DO Nov 25, 2024 20:43
--- NOTE | 2024-11-25 23:29 | DVHPN2 ---
Progress Note - Dictate Date Seen: Nov 25, 2024 Medical Necessity Reason Pt with a Central, PICC or Fol: No Subjective Patient seen and examined at bedside. Remains on supplemental oxygen Overnight events reviewed vital signs Vital Sign Date Time Temp Pulse Resp B/P (MAP) Pulse Ox O2 Delivery O2 Flow Rate FiO2 11/25/24 22:28 95 Nasal Cannula* 2 28 11/25/24 21:00 97.8 94 16 104/69 (81) 97.8 Total Intake and Output 11/24/24 11/24/24 11/25/24 15:00 23:00 07:00 Intake Total 1625 ml 850 ml Output Total 1100 ml Balance 1625 ml -250 ml medications Current Medications Medications Dose Ordered Sig/Joaquin Route Start Time Stop Time Status Last Admin Dose Admin Albuterol 2.5 mg Q6HPRN PRN NEB 11/21/24 22:30 11/25/24 09:43 2.5 MG Ipratropium [place] 0.5 mg Q6HPRN PRN NEB 11/21/24 22:30 11/25/24 09:43 0.5 MG Atorvastatin Calcium 10 mg HS PO 11/22/24 22:00 11/25/24 21:43 10 MG Azithromycin 250 ml @ 125 mls/hr DAILY IV 11/22/24 10:00 11/25/24 09:01 125 MLS/HR Amlodipine Besylate 5 mg DAILY PO 11/22/24 10:00 11/22/24 11:15 5 MG Montelukast Sodium 10 mg HS PO 11/22/24 22:00 11/25/24 21:42 10 MG Ondansetron HCl 4 mg Q4HP PRN IV 11/21/24 22:30 Acetaminophen 650 mg Q6HP PRN PO 11/21/24 22:30 Aspirin 81 mg DAILY PO 11/22/24 10:00 11/25/24 08:59 81 MG Sodium Chloride 1,000 ml @ 75 mls/hr [id number] IV 11/22/24 16:30 11/25/24 02:42 75 MLS/HR Tamsulosin HCl 0.8 mg BID PO 11/22/24 22:00 11/25/24 21:42 0.8 MG Acetaminophen/ Hydrocodone Bitart 1 tab Q8HPRN PRN PO 11/22/24 21:45 11/25/24 17:30 1 TAB Apixaban 10 mg BID PO 11/23/24 10:00 11/30/24 09:59 11/25/24 21:42 10 MG Apixaban 5 mg BID PO 11/30/24 10:00 Docusate Sodium 100 mg BID PRN PO 11/24/24 16:50 11/25/24 05:50 100 MG Lactulose 30 ml DAILYPRN PRN PO 11/25/24 14:00 11/25/24 14:43 30 ML objective Gen.: Patient lying in bed in no apparent distress. On supplemental oxygen. Head: Normocephalic, atraumatic. Eyes: EOMI/PERRLA. Ears: Normal hearing. Normal anatomy. Neck/trachea: Trachea midline, supple. Nose: Normal external anatomy. Mouth: Moist mucous membranes. Chest: Decreased air entry bilaterally. No wheezing or rhonchi. Cardiovascular: Positive S1, positive S2. Regular rate and rhythm. Abdomen: Positive bowel sounds in all 4 quadrants. Soft, non-tender, non- distended. : Deferred. Rectal: Deferred. Skin: Warm, dry. Intact. Extremities: 2+ radial pulses bilaterally. No lower extremity edema. Neuro: Awake, alert, oriented x3. No gross motor or sensory deficits. Cranial nerves II through XII intact. Gait not assessed. laboratory and microbiology Laboratory Tests 11/23/24 15:53 Test 11/23/24 15:53 Range/Units Serum Glucose 92 74-106 mg/dL Assessment/Plan Impression: Acute hypoxic respiratory failure Dependence on supplemental oxygen Pulmonary embolism Deep venous thrombosis COPD Asthma Obesity BMI 30.3 Events: Remains on supplemental oxygen, 2 LPM NC Taper O2 as tolerated S/p thrombectomy on 11/23/24 Continue Eliquis 5 mg BID. Continue bronchodilators Continue antibiotics On Singulair Continue Flomax Head of bed elevation Aspiration precautions Patient has home oxygen. Labs and imaging reviewed. Rest of plan as noted below. Plan: Supplemental oxygen Titrate to keep O2 sats above 92%. Continue bronchodilators. On montelukast Anticoagulation w/ Eliquis S/p thrombectomy on 11/23/24 by IR Pain control Avoid oversedation Monitor renal function. Monitor electrolytes. Supplement as necessary. Monitor ins and outs. DVT prophylaxis. Prognosis: Poor given patient's multiple co-morbidities. Rest of plan per hospitalist and other consultants. A total of 51 minutes of clinical care time was spent reviewing the patient record, examining the patient, making a diagnostic and therapeutic plan, discussing this plan with the medical personnel, following up on diagnostic studies and following the patient for clinical stability excluding any and all procedures. At least 50% of this time was spent in direct, [id number] contact. Thank you Dr Scruggs for allowing me to participate in this patient's care. Further recommendations will depend on the patient's clinical course. Please do not hesitate to contact me if you have any questions or concerns. This medical document was created using an electronic medical record system with [employer] computerized dictation system. Although these documentations are being carefully reviewed, there may still be some phonetic and typographical changes. The errors are purely typographical, due to imperfection on the software program, and do not reflect any compromise in the patient's medical care. Plan discussed with: Patient, Other (ALFONZO Jha) OSVALDO FERNANDEZ MD Nov 25, 2024 23:29
[2024-11-26] VITALS (10 sets, daily range): BP systolic 93–126; BP diastolic 48–73; PULSE 73–97; RESP 16–18; TEMP 97.1–98.2; O2SAT 96–100
[2024-11-26 13:35] LABS: Basophils # (auto) 0 10 ^3/uL (0-0.2); Basophils % (auto) 0.3 % (0.0-2.0); Eosinophils # (auto) 0.4 10 ^3/uL (0-0.8); Eosinophils % (auto) 4.3 % (0.0-7.0); Hematocrit 33.7 % (41.0-53.0); Hemoglobin 11.6 g/dL (13.5-17.5); Lymphocytes # (auto) 3.3 10 ^3/uL (0.4-5.4); Lymphocytes % (auto) 31.8 % (10.0-50.0); Mean Corpuscular Hemoglobin 32.4 pg (28.0-32.0); Mean Corpuscular Hgb Conc. 34.4 g/dL (32.0-36.0); Mean Corpuscular Volume 94.3 fL (80.0-100.0); Monocytes # (auto) 0.7 10 ^3/uL (0-1.3); Monocytes % (auto) 7.1 % (0.0-12.0); Neutrophils # (auto) 5.8 10 ^3/uL (1.6-8.6); Neutrophils % (auto) 56.5 % (37.0-80.0); Platelet Count (auto) 228 10^3/uL (140-450); Red Blood Cells 3.58 10^6/uL (4.5-5.90); White Blood Cell 10.3 10^3/uL (4.4-10.8)
[2024-11-26] MEDS ORDERED: APIX5TAB PO (15:06)
--- NOTE | 2024-11-26 16:12 | DVHDS2 ---
Discharge Summary Date of Admission Nov 21, 2024 at 22:20 Date of Discharge: Nov 26, 2024 Admitting Diagnosis Acute on chronic respiratory failure Labs/Diagnostic Data: Laboratory Results Test 11/26/24 13:15 11/24/24 20:42 11/23/24 15:53 11/23/24 11:41 White Blood Count 10.3 10^3/uL (4.4-10.8) Red Blood Count 3.58 10^6/uL (4.5-5.90) Hemoglobin 11.6 g/dL (13.5-17.5) Hematocrit 33.7 % (41.0-53.0) Mean Corpuscular Volume 94.3 fL (80.0-100.0) Mean Corpuscular Hemoglobin 32.4 pg (28.0-32.0) Mean Corpuscular Hemoglobin Concent 34.4 g/dL (32.0-36.0) Red Cell Distribution Width 15.0 % (11.8-14.3) Platelet Count 228 10^3/uL (140-450) Mean Platelet Volume 6.9 fL (6.9-10.8) Neutrophils (%) (Auto) 56.5 % (37.0-80.0) Lymphocytes (%) (Auto) 31.8 % (10.0-50.0) Monocytes (%) (Auto) 7.1 % (0.0-12.0) Eosinophils (%) (Auto) 4.3 % (0.0-7.0) Basophils (%) (Auto) 0.3 % (0.0-2.0) Neutrophils # (Auto) 5.8 10 ^3/uL (1.6-8.6) Lymphocytes # (Auto) 3.3 10 ^3/uL (0.4-5.4) Monocytes # (Auto) 0.7 10 ^3/uL (0-1.3) Eosinophils # (Auto) 0.4 10 ^3/uL (0-0.8) Basophils # (Auto) 0 10 ^3/uL (0-0.2) Nucleated Red Blood Cells 0.0 % Influenza Type A Antigen Negative (Negative) Influenza Type B Antigen Negative (Negative) SARS-CoV-2 Antigen (Rapid) Negative (NEGATIVE) Sodium Level 140 mmol/L (136-145) Potassium Level 4.0 mmol/L (3.5-5.1) Chloride Level 108 mmol/L (98-107) Carbon Dioxide Level 27 mmol/L (20-31) Anion Gap 5 (5-15) Blood Urea Nitrogen 17 mg/dL (9-23) Creatinine 0.84 mg/dL (0.700-1.30) Glomerular Filtration Rate Calc 93 mL/min (>90) BUN/Creatinine Ratio 20.2 (10.0-20.0) Serum Glucose 92 mg/dL (74-106) Calcium Level 10.4 mg/dL (8.7-10.4) Activated Clotting Time 282 SEC. (93-166) Test 11/23/24 07:49 11/22/24 18:32 11/22/24 05:17 11/21/24 22:14 Prothrombin Time 11.6 sec (9.3-11.8) Prothrombin Time INR 1.11 (0.9-1.15) Activated Partial Thromboplast Time 32.8 SEC (24.5-34.5) Protein C Antigen 137 % (60-150) Protein S Antigen 103 % (60-150) Free Protein S Antigen 112 % (61-136) Hepatitis B Surface Antigen Negative (Negative) Hepatitis C Antibody Negative (Negative) Troponin I High Sensitivity 151 ng/L (</=54) Test 11/21/24 21:12 D-Dimer, Quantitative 13.18 mg/L FEU (0.0-0.49) Lactic Acid Level 1.5 mmol/L (0.4-2.0) B-Type Natriuretic Peptide 307.38 pg/mL (0-100) Other Laboratory Tests 11/26/24 13:15 11/23/24 15:53 Brief Hx & Hospital Course: History of Present Illness 74-year-old male presents for evaluation of shortness for breath. Patient reports a two week history of worsening shortness for breath with associated cough. He reports chest pain with deep breathing. He reports occasional chills. Currently denies chest pain. He uses 3 L of nasal cannula oxygen at home. He has a history of COPD. Denies any other acute complaints at the moment. Course of hospitalization: Further discussion with the patient reveals that he was intermittent chest pain, generalized weakness that has left him with being bed-bound. D-dimer was found to be elevated. Patient had CT angiogram of the chest as well as DVT study with a CT scan showing bilateral pulmonary embolisms, right heart strain, as well as DVT study being positive for nonocclusive thrombus to right popliteal vein. Echocardiogram was also performed given the patient had elevated troponins prior to the PE workup, which also revealed RV dilatation. Anticoagulation was started with Lovenox, with consultation placed to Interventional Radiology. Patient underwent thrombectomy on 11/23/2024 with improvement in the patient's PA pressures. Over the past several days the patient states that his respiratory status has improved. He states that he has been ambulating. Patient has been transitioned to Eliquis 10 mg p.o. b.i.d.. He will be continued on Eliquis per protocol for PE/DVT, it was instructed to continue all previous home medications. He will follow up with his supervisor [employer], PCP, product communications manager in the next 2-3 weeks. All questions answered. Physical examination General: Alert and Oriented x3. No acute distress. Well-nourished. Eyes: EOMI. Anicteric. HENT: Moist mucous membranes. Lungs: Clear to auscultation bilaterally. No accessory muscle use. Cardiovascular: Regular rate and rhythm. No murmur. No JVD. Abdomen: Soft, non-tender and non-distended. No palpable masses. Extremities: No edema. Non-tender. Skin: No rashes or lesions. Warm. Neurologic: No focal neurological deficits. CN II-XII grossly intact, but not individually tested. Psychiatric: Cooperative. Appropriate mood and affect. Total time spent with patient discussing and formulating plan of care: 35 minutes. This medical document was created using an electronic medical record system with [employer] dictation system. Although this document has been carefully reviewed, there may still be some phonetic and typographical errors. These areas are purely typographical due to imperfections of the software programs, and do not reflect any compromise in the patient's medical care. Consults/Reason for consult Pulmonology: Acute on chronic respiratory failure Interventional Radiology: Bilateral PE Operations or Procedures 11/23/2024: Pulmonary embolism thrombectomy Condition at Discharge: Fair Final Diagnosis/Problems List Bilateral PE with Cor Pulmonale Secondary Diagnosis: -DVT to right lower extremity -bilateral pulmonary embolism including right main pulmonary artery -obesity -COPD -asthma -primary hypertension -pulmonary hypertension -acute hypoxic Respiratory failure Discharge Disposition: Home Discharge Instruct/Medications Diet: Cardiac 2g Na,low cholest Activity: No Restrictions, As Tolerated Follow Up/Referral: Dr. Sampson in 1-[address] Montes in 1-[address] Mayfield in 2-3 weeks Medications: Eliquis 10mg po bid x 7 days total. (receive 5 doses in hospital). Eliquis 5mg po bid therafter. 36 Discharge Statement: "Patient was advised to return to the ER or call 911 if any headaches, dizziness, shortness of breath, chest pain, abdominal pain, bleeding, fevers, or worsening of medical condition. Patient was counseled about treatment plan, medications, possible side effects, patientverbalized understanding. All questions were answered to the best of my ability. This discharge took greater then 30 minutes in planning, reviewing documentation, counseling the patient, and discussing with other team members." ASSESSMENT ASSESSMENT Assessment Bilateral PE with Cor Pulmonale Date of Service: Nov 26, 2024 Billing Provider: CARI HESTER NP Common Visit Codes: 13073-FCO/OBS DISCH DAY >30min CARI HESTER NP Nov 26, 2024 16:12
--- NOTE | 2024-11-26 22:55 | DVHPN2 ---
Progress Note - Dictate Date Seen: Nov 26, 2024 Medical Necessity Reason Pt with a Central, PICC or Fol: No Subjective Patient seen and examined at bedside. Remains on supplemental oxygen Overnight events reviewed vital signs Vital Sign Date Time Temp Pulse Resp B/P (MAP) Pulse Ox O2 Delivery O2 Flow Rate FiO2 11/26/24 17:00 97.6 97 18 95/70 (78) 97 97.6 11/26/24 14:39 Nasal Cannula* 2 28 Total Intake and Output 11/25/24 11/25/24 11/26/24 15:00 23:00 07:00 Intake Total 250 ml 1800 ml 690 ml Output Total 300 ml Balance 250 ml 1800 ml 390 ml objective Gen.: Patient lying in bed in no apparent distress. On supplemental oxygen. Head: Normocephalic, atraumatic. Eyes: EOMI/PERRLA. Ears: Normal hearing. Normal anatomy. Neck/trachea: Trachea midline, supple. Nose: Normal external anatomy. Mouth: Moist mucous membranes. Chest: Decreased air entry bilaterally. No wheezing or rhonchi. Cardiovascular: Positive S1, positive S2. Regular rate and rhythm. Abdomen: Positive bowel sounds in all 4 quadrants. Soft, non-tender, non- distended. : Deferred. Rectal: Deferred. Skin: Warm, dry. Intact. Extremities: 2+ radial pulses bilaterally. No lower extremity edema. Neuro: Awake, alert, oriented x3. No gross motor or sensory deficits. Cranial nerves II through XII intact. Gait not assessed. laboratory and microbiology Laboratory Tests 11/26/24 13:15 11/23/24 15:53 Test 11/23/24 15:53 Range/Units Serum Glucose 92 74-106 mg/dL Assessment/Plan Impression: Acute hypoxic respiratory failure Dependence on supplemental oxygen Pulmonary embolism Deep venous thrombosis COPD Asthma Obesity BMI 30.3 Events: Remains on supplemental oxygen, 2 LPM NC Taper O2 as tolerated S/p thrombectomy on 11/23/24 Sheath was removed today. Continue Eliquis BID. Continue bronchodilators Continue antibiotics Continue Flomax Incentive spirometry Head of bed elevation Aspiration precautions Patient has home oxygen. Patient is stable for discharge from the pulmonary standpoint. Labs and imaging reviewed. Rest of plan as noted below. Plan: Supplemental oxygen Titrate to keep O2 sats above 92%. Continue bronchodilators. Continue antibiotics Anticoagulation w/ Eliquis S/p thrombectomy on 11/23/24 by IR Pain control Avoid oversedation Monitor renal function. Monitor electrolytes. Supplement as necessary. Monitor ins and outs. DVT prophylaxis. Prognosis: Poor given patient's multiple co-morbidities. Rest of plan per hospitalist and other consultants. A total of 51 minutes of clinical care time was spent reviewing the patient record, examining the patient, making a diagnostic and therapeutic plan, discussing this plan with the medical personnel, following up on diagnostic studies and following the patient for clinical stability excluding any and all procedures. At least 50% of this time was spent in direct, [id number] contact. Thank you Dr Scruggs for allowing me to participate in this patient's care. Further recommendations will depend on the patient's clinical course. Please do not hesitate to contact me if you have any questions or concerns. This medical document was created using an electronic medical record system with [employer] dictation system. Although these documentations are being carefully reviewed, there may still be some phonetic and typographical changes. The errors are purely typographical, due to imperfection on the software program, and do not reflect any compromise in the patient's medical care. Plan discussed with: Patient, Other (ALFONZO Almonte) OSVALDO FERNANDEZ MD Nov 26, 2024 22:55
[2024-11-30] MEDS ORDERED: APIXABAN 5 MG TAB PO SCH (10:00)
== END 2024-11-26 17:55 | disposition home or self-care (01) | DRG 163 ==
LOC: ER 19:08 → EDBD 19:08 → EDUNIT# 19:08 → OVERFLOW 22:20 → WEST WING 11-22 07:25 → TELE-WESTW 11-22 20:06
PROVIDERS: ADMIT Internal Medicine; ATTEND Nurse Practitioner Acute Care
PROC: 02CR3ZZ Extirpation of Matter from Left Pulmonary Artery, Percutaneous Approach (ICD-10-PCS; principal; 2024-11-23)
PROC: 02CQ3ZZ Extirpation of Matter from Right Pulmonary Artery, Percutaneous Approach (ICD-10-PCS; 2024-11-23)
PROC: B31T1ZZ Fluoroscopy of Left Pulmonary Artery using Low Osmolar Contrast (ICD-10-PCS; 2024-11-23)
PROC: B31S1ZZ Fluoroscopy of Right Pulmonary Artery using Low Osmolar Contrast (ICD-10-PCS; 2024-11-23)
DX: I26.09 Other pulmonary embolism with acute cor pulmonale (principal); I21.A1 Myocardial infarction type 2; J96.01 Acute respiratory failure with hypoxia; J44.1 Chronic obstructive pulmonary disease with (acute) exacerbation; I82.431 Acute embolism and thrombosis of right popliteal vein; I27.20 Pulmonary hypertension, unspecified; I12.9 Hypertensive chronic kidney disease with stage 1 through stage 4 chronic kidney disease, or unspecified chronic kidney disease; E66.9 Obesity, unspecified; K21.9 Gastro-esophageal reflux disease without esophagitis; N18.9 Chronic kidney disease, unspecified; Z20.822 Contact with and (suspected) exposure to COVID-19; E78.5 Hyperlipidemia, unspecified; Z88.1 Allergy status to other antibiotic agents; Z82.49 Family history of ischemic heart disease and other diseases of the circulatory system; Z88.0 Allergy status to penicillin; Z82.0 Family history of epilepsy and other diseases of the nervous system; Z82.3 Family history of stroke; Z80.0 Family history of malignant neoplasm of digestive organs; Z80.8 Family history of malignant neoplasm of other organs or systems; Z68.30 Body mass index [BMI] 30.0-30.9, adult; Z99.81 Dependence on supplemental oxygen; Z79.01 Long term (current) use of anticoagulants
CPT/HCPCS: 36415; 37184; 71045; 71275; 80048; 81241; 83605; 83880; 84484; 85025; 85302; 85305; 85306; 85379; 85610; 85730; 86803; 86850; 86900; 86901; 87040; 87340; 87426; 87804; 93005; 93306; 93970; 94640; 99152; 99291; C1769; C1894; G0378; J2250; Q9967